=== PATIENT | female | born 1985 ===

== ENCOUNTER 2018-08-25 09:57 | Inpatient (IN) | payer MEDICAID, OTHER ==
[2018-08-25 11:12] LABS: HCG,QUALITATIVE URINE NEGATIVE (NEGATIVE)
[2018-08-25 11:13] LABS: SQUAMOUS EPITHIAL < 1 /hpf (0-5); URINE BACTERIA MANY (<OCC); URINE BILIRUBIN NEGATIVE (NEGATIVE); URINE BLOOD 2+ (NEGATIVE); URINE COLOR Yellow (YELLOW); URINE GLUCOSE (UA) NORMAL (Normal); URINE LEUKOCYTE ESTERASE 1+ Leu/uL (Negative); URINE PROTEIN 1+ mg/dL (NEGATIVE); URINE UROBILINOGEN NORMAL mg/dL (0.2-1.0)
[2018-08-25 11:14] LABS: URINE CLARITY SLHAZY (Clear)
--- NOTE | 2018-08-25 11:31 | C.PDOC ---
History Of Present Illness 33 y/o female pt with hx of kidney stone with lithotripsy and right renal stent on 07[place]13 in [place] presents to the ER complaining of abdominal pain. Associated sx includes subjective fever, dysuria and urinary pressure since then. Pt was seen by Dr. Wheatley on 08/16 and was started on Augmentin with no improvement. Pt reports stent is supposed to come out in 2 months. Pt has no other associated sx or complaints at this time. Time Seen by Provider: 08/25/18 10:51 Chief Complaint (Nursing): Female Genitourinary History Per: Patient History/Exam Limitations: no limitations Onset/Duration Of Symptoms: Days Current Symptoms Are (Timing): Still Present Past Medical History Reviewed: Historical Data, Nursing Documentation, Vital Signs Vital Signs: Last Vital Signs Temp 98.8 F 08/25/18 10:30 Pulse 72 08/25/18 10:30 Resp 18 08/25/18 10:30 BP 106/67 08/25/18 10:30 Pulse Ox 98 08/25/18 10:30 - Medical History PMH: Kidney Stones, Chronic Kidney Disease Family History: States: No Known Family Hx - Social History Hx Alcohol Use: No Hx Substance Use: No - Immunization History Hx Tetanus Toxoid Vaccination: No Hx Influenza Vaccination: No Review Of Systems Constitutional: Positive for: Fever (subjective) Gastrointestinal: Positive for: Abdominal Pain Genitourinary: Positive for: Dysuria, Other (urinary pressure ) Physical Exam - Physical Exam Appears: Non-toxic, No Acute Distress Skin: No Rash Head: Atraumatic, Normacephalic Eye(s): bilateral: PERRL, EOMI Neck: Supple Chest: No Tenderness Cardiovascular: Rhythm Regular, No Murmur Respiratory: No Rales, No Rhonchi, No Wheezing, Other (CTA b/l ) Gastrointestinal/Abdominal: Soft, Tenderness (left sided and suprapubic ), No Distention, No Guarding, No Rebound Back: No CVA Tenderness Neurological/Psych: Oriented x3, Normal Speech, Normal Cognition ED Course And Treatment - Laboratory Results Result Diagrams: 09/02/18 06:56 09/02/18 06:56 Lab Results: Urine Color Yellow (YELLOW) 08/25/18 10:58 Urine Clarity [place]hazy (Clear) 08/25/18 10:58 Urine pH 6.0 (5.0-8.0) 08/25/18 10:58 Ur Specific [place] 1.017 (1.003-1.030) 08/25/18 10:58 Urine Protein 1+ mg/dL (NEGATIVE) H 08/25/18 10:58 Urine Glucose (UA) Normal mg/dL (Normal) 08/25/18 10:58 Urine Ketones Negative mg/dL (NEGATIVE) 08/25/18 10:58 Urine Blood 2+ (NEGATIVE) H 08/25/18 10:58 Urine Nitrate Negative (NEGATIVE) 08/25/18 10:58 Urine Bilirubin Negative (NEGATIVE) 08/25/18 10:58 Urine Urobilinogen Normal mg/dL (0.2-1.0) 08/25/18 10:58 Ur Leukocyte Esterase 1+ Tash/uL (Negative) H 08/25/18 10:58 Urine WBC (Auto) 14 /hpf (0-5) H 08/25/18 10:58 Urine RBC (Auto) 56 /hpf (0-3) H 08/25/18 10:58 Ur Squamous Epith Cells < 1 /hpf (0-5) 08/25/18 10:58 Urine Bacteria Many (<OCC) H 08/25/18 10:58 Urine HCG, Qual Negative (NEGATIVE) 08/25/18 10:58 Urine HCG, Qual Negative (NEGATIVE) 08/25/18 10:58 O2 Sat by Pulse Oximetry: 98 (RA) Pulse Ox Interpretation: Normal Medical Decision Making Medical Decision Making: plans: -- chem labs -- blood work -- abdomen XR Discuss case with Dr. Wheatley, awaits sensitivity results from recent urine culture pt with esbl positive urine, sensitive to few antiboitcs. discussed with Dr Alison burciaga and also with Dr Agosto who accepts pt for admission Disposition Discussed With Dr.: Hossein Banks Doctor Will See Patient In The: Hospital - Disposition Disposition: HOSPITALIZED Disposition Time: 16:50 Condition: GOOD - Clinical Impression Clinical Impression: Retained ureteral stent, Infection due to ESBL-producing Escherichia coli - PA / CONTINUITY PERSON / Resident Statement / has reviewed & agrees with the documentation as recorded. - Scribe Statement The provider has reviewed the documentation as recorded by the Alberto Brumfield Do All medical record entries made by the Scribe were at my direction and personally dictated by me. I have reviewed the chart and agree that the record accurately reflects my personal performance of the history, physical exam, medical decision making, and the department course for this patient. I have also personally directed, reviewed, and agree with the discharge instructions and disposition.
[2018-08-25 11:42] LABS: BASO # 0.1 K/uL (0.0-0.2); BASO % 0.9 % (0.0-2.0); EOS # 0.1 K/uL (0.0-0.7); EOS % 1.4 % (0.0-4.0); HEMOGLOBIN 12.3 g/dL (11.0-16.0); LYMPH # 2.5 K/uL (1.0-4.3); LYMPH % 26.5 % (20.0-40.0); MEAN CELL VOLUME 79.3 fL (81.0-99.0); MEAN CORPUSCULAR HEMOGLOBIN 26.6 pg (27.0-31.0); MEAN CORPUSCULAR HGB CONC 33.5 g/dL (33.0-37.0); MEAN PLATELET VOLUME 9.3 fL (7.2-11.7); MONO # 0.7 K/uL (0.0-0.8); MONO % 7.2 % (0.0-10.0); RBC 4.61 Mil/uL (3.80-5.20); RED CELL DISTRIBUTION WIDTH 15.3 % (11.5-14.5); WHITE BLOOD COUNT 9.4 K/uL (4.8-10.8)
[2018-08-25 11:55] LABS: ALB/GLOB RATIO 1.3 (1.0-2.1); ALBUMIN 4.2 g/dL (3.5-5.0); AST/SGOT 24 U/L (14-36); BLOOD UREA NITROGEN 13 mg/dL (7-17); CALCIUM 8.9 mg/dl (8.6-10.4); GFR NON-AFRICAN AMERICAN > 60; LIPASE 91 U/L (23-300)
[2018-08-25 12:06] LABS: ALT/SGPT < 6 U/L (9-52)
--- NOTE | 2018-08-25 12:45 | RAD ---
Date of service: 08/25/2018 HISTORY: hx right renal stent, eval for stones bilateral COMPARISON: None available. TECHNIQUE: 1 view obtained. FINDINGS: A right double-J ureteral stent remains in customary position. There is a 3 mm the radio opacity medial to the stent in the right hemipelvis. There are no calcifications overlying the right renal silhouette. There is a faint 8 mm calcification overlying the left renal silhouette. BOWEL: Normal. No obstruction. No free air. BONES: Normal. OTHER FINDINGS: None. IMPRESSION: Right double-J ureteral stent remains in customary position. 3 mm radiopacity medial to the stent in the right hemipelvis may represent a ureteral stone in the appropriate clinical setting. No radiographic evidence for right nephrolithiasis 8 mm faint linear calcification overlying the left renal silhouette represent in renal stone. Please correlate with renal ultrasound.
[2018-08-25] MEDS ORDERED: Meropenem 500 MG in Sodium Chloride 0.9% 100 ML IVPB STA (14:22)
--- NOTE | 2018-08-25 14:30 | CP.PCM.HP ---
<VipulJohnny gonzalezic - Last Filed: 08/25/18 16:52> History of Present Illness - History of Present Illness History of Present Illness: H&P for Dr. Banks Patient is a 33 year old female, with PMHx of nephrolithiasis (with placement of renal stent, lithotripsy in 07/03), who presents for flank pain. States she has "5+ year history of kidney stones" but this bout of nephrolithiasis began two months ago. She describes pain as "burning sensation," and is located on her left flank - which radiates into her groin. Pain rates as "5-7/10" on the severity scale. Patient admits flank pain associated with subjective fever, dysuria, hematuria and urinary frequency. Pt was seen by Dr. Wheatley on 08/16 and was started on Augmentin without improvement. Pt reports renal stent is supposed to "come out in October" per her urologist in the [place]. She denies knowing the type of stone. PMHx: nephrolithiasis (first diagnosed 5 yrs ago; renal stent lithotripsy 07/03), pre-eclampsia PSHx: (x2) Allergies: NKA Fam Hx: non-contributory Medications: Augmentin (started 08/16) Present on Admission - Present on Admission Any Indicators Present on Admission: No History of DVT/PE: No History of Uncontrolled Diabetes: No Review of Systems - Constitutional Constitutional: Chills, Fever (subjective). absent: Anorexia - EENT Eyes: absent: Change in Vision Ears: absent: Ear Discharge Nose/Mouth/Throat: absent: Nasal Discharge, Sore Throat - Cardiovascular Cardiovascular: absent: Chest Pain, Dyspnea, Dyspnea on Exertion - Respiratory Respiratory: absent: Cough, Dyspnea - Gastrointestinal Gastrointestinal: Abdominal Pain - Genitourinary Genitourinary: Difficulty Urinating, Dysuria, Flank Pain, Hematuria, Urinary Urgency, Hx Renal/Bladder Calculi - Musculoskeletal Musculoskeletal: Back Pain. absent: Numbness, Tingling - Integumentary Integumentary: absent: Dry Skin, Wounds - Neurological Neurological: absent: Tingling, Weakness - Psychiatric Psychiatric: absent: Anxiety, Depression - Endocrine Endocrine: absent: Fatigue, Polyuria (`) Past Patient History - Past Social History Smoking Status: Never Smoked - RENAL Hx Chronic Kidney Disease: Yes Hx Kidney Stones: Yes - PSYCHIATRIC Hx Substance Use: No - SURGICAL HISTORY Hx Surgeries: Yes Hx Section: Yes (x2) Other/Comment: urinary stent - ANESTHESIA Hx Anesthesia: No Meds Allergies/Adverse Reactions: Allergies Allergy/AdvReac Type Severity Reaction Status Date / Time No Known Allergies Allergy Verified 08/25/18 10:24 Physical Exam - Constitutional Appears: Non-toxic, No Acute Distress - Head Exam Head Exam: ATRAUMATIC, NORMAL INSPECTION - Eye Exam Eye Exam: EOMI Pupil Exam: PERRL - ENT Exam ENT Exam: Mucous Membranes Moist - Respiratory Exam Respiratory Exam: Clear to Auscultation Bilateral, NORMAL BREATHING PATTERN. absent: Decreased Breath Sounds, Rhonchi, Wheezes - Cardiovascular Exam Cardiovascular Exam: REGULAR RHYTHM, +S1, +S2 - GI/Abdominal Exam GI & Abdominal Exam: Normal Bowel Sounds, Soft, Tenderness (left sided worse). absent: Distended, Guarding, Rebound - Back Exam Back exam: CVA tenderness (L) (mild). absent: CVA tenderness (R) - Neurological Exam Neurological exam: Alert, Normal Gait, Oriented x3 - Psychiatric Exam Psychiatric exam: Normal Affect, Normal Mood - Skin Skin Exam: Normal Color, Warm Results - Vital Signs Recent Vital Signs: Last Vital Signs Temp 98.8 F 08/25/18 10:30 Pulse 72 08/25/18 10:30 Resp 18 08/25/18 10:30 BP 106/67 08/25/18 10:30 Pulse Ox 98 08/25/18 12:13 - Labs Result Diagrams: 08/25/18 11:34 08/25/18 11:34 Labs: Laboratory Results - last 24 hr 08/25/18 08/25/18 08/25/18 10:58 11:34 11:34 WBC 9.4 RBC 4.61 Hgb 12.3 Hct 36.6 MCV 79.3 L MCH 26.6 L MCHC 33.5 RDW 15.3 H Plt Count 264 MPV 9.3 Neut % (Auto) 64.0 Lymph % (Auto) 26.5 Gaston % (Auto) 7.2 Eos % (Auto) 1.4 Baso % (Auto) 0.9 Neut # (Auto) 6.0 Lymph # (Auto) 2.5 Gaston # (Auto) 0.7 Eos # (Auto) 0.1 Baso # (Auto) 0.1 Sodium 136 Potassium 3.8 Chloride 102 Carbon Dioxide 27 Anion Gap 11 BUN 13 Creatinine 0.8 Est GFR ( Amer) > 60 Est GFR (Non-Af Amer) > 60 Random Glucose 87 Calcium 8.9 Total Bilirubin 0.4 AST 24 ALT < 6 L Alkaline Phosphatase 55 Total Protein 7.3 Albumin 4.2 Globulin 3.1 Albumin/Globulin Ratio 1.3 Lipase 91 Urine Color Yellow Urine Clarity [place]azy Urine pH 6.0 Ur Specific [place] 1.017 Urine Protein 1+ H Urine Glucose (UA) Normal Urine Ketones Negative Urine Blood 2+ H Urine Nitrate Negative Urine Bilirubin Negative Urine Urobilinogen Normal Ur Leukocyte Esterase 1+ H Urine WBC (Auto) 14 H Urine RBC (Auto) 56 H Ur Squamous Epith Cells < 1 Urine Bacteria Many H Urine HCG, Qual Negative Assessment & Plan - Assessment and Plan (Free Text) Plan: Nephrolithiasis w. Positive Urine Culture Admit to med/surg Afebrile, No WBC History of lithotripsy/stenet placement in [facility] [place] (06/2018) Seen Dr. Wheatley - Home Augmentin - office urine cx: ESBL+ (Sensitivites to gentamycin, merrem, macrobid) CT A/P (08/25/18): Small rt kidney; 2mm nonobstructing stone in lower pole of right kidney w/o obstructive uropathy. Right ureteral stent in customary position. No evidence of ureteral stone. Mild compensatory hypertrophy of left kidney. Small non-obstructing stones in the left kidney - largest in lower pole measuring 5mm. Abd xray (08/25/18): 3mm radio-opacity medial to the stent in right hemipelvis, 8mm liver calcification overlying left renal silhouette UA (08/25/18): LE 1+, WBC 14, 2+ Blood, Many bacteria, Sq epithelial 1, BHCG negative Lipase 91 Urology consult - Dr Rosas, help appreciated - OR cystoscopy (08/28/18 - Tuesday) Merrem 1gm IV Q8H (start 08/25/18; Day 1) -Merrem 500mg IV, Macrobid 100mg PO STAT in ED Toradol 30mg IV Q6H JESUS, Tylenol 650mg JESUS x 24 hrs Lactobacillus 1 cap PO BID f/u blood cx, urine cx PPX VTE: 2pts (BMI >30, Minor surgery planned) Heparin 5000u Q12H Protonix 40mg PO Daily SCDs Heart Healthy diet Winston Aguilar PGY3 D/w Dr Banks <Hossein Banks - Last Filed: 08/26/18 16:07> Results - Vital Signs Recent Vital Signs: Last Vital Signs Temp 97.9 F 08/26/18 15:00 Pulse 66 08/26/18 15:00 Resp 20 08/26/18 15:00 BP 104/69 08/26/18 15:00 Pulse Ox 97 08/26/18 15:00 - Labs Result Diagrams: 08/25/18 11:34 08/25/18 11:34 Attending/Attestation - Attestation I have personally seen and examined this patient.: Yes I have fully participated in the care of the patient.: Yes I have reviewed all pertinent clinical information: Yes Notes (Text): 08/26/18 16:06 This is a late entry. History, Physical, Assessment and Plan were gone over in detail with resident Dr. Martin Aguilar. Hossein Banks D.O.
--- NOTE | 2018-08-25 15:13 | CT ---
Date of service: 08/25/2018 PROCEDURE: CT Abdomen and Pelvis without intravenous contrast HISTORY: Right flank pain COMPARISON: Plain radiographs performed earlier the same day TECHNIQUE: CT scan of the abdomen and pelvis was performed without administration of intravenous contrast. Oral contrast was not administered. Coronal and sagittal reformatted images were obtained. Radiation dose: Total exam DLP = 819.45 mGy-cm. This CT exam was performed using one or more of the following dose reduction techniques: Automated exposure control, adjustment of the mA and/or kV according to patient size, and/or use of iterative reconstruction technique. FINDINGS: LOWER THORAX: The visualized lungs are clear. LIVER: Normal in size. No gross lesion or ductal dilatation. GALLBLADDER AND BILE DUCTS: Well distended. No calcified gallstones. No common bile duct dilatation. PANCREAS: Normal in size. No gross lesion or ductal dilatation. SPLEEN: Normal in size. ADRENALS: Normal in size. No discrete nodule. KIDNEYS AND URETERS: The right kidney is small in size with a cortical scar in the pole there is mild compensatory hypertrophy of the left kidney. There is mild fullness in the right collecting system. No left hydronephrosis. There is a 2 mm nonobstructing stone in the lower pole of the right kidney and few nonobstructing stones in the left kidney, the largest in the lower pole measures 5 mm. A right double-J ureteral stent remain in customary position. There is no evidence of ureteral stone or obstructive uropathy. VASCULATURE: Normal in caliber. No aortic aneurysm. No aortic atherosclerotic calcification or mural plaque present. BOWEL: Evaluation of the bowel is limited in the absence of oral contrast. The small bowel loops are normal in caliber. The colon is normal in size. There is moderate amount of stool in the colon. No bowel dilatation or wall thickening. No bowel obstruction. APPENDIX: Normal appendix. PERITONEUM: No free fluid. No free air. LYMPH NODES: No enlarged lymph nodes. BLADDER: Well distended and normal in appearance. REPRODUCTIVE: The uterus is normal in size. BONES: No acute fracture. Within normal limits for the patient's age. OTHER FINDINGS: There are small phleboliths in the pelvis. There is a small fat containing umbilical hernia. IMPRESSION: 1. Small right kidney with a cortical scar in the upper pole. 2 mm nonobstructing stone in the lower pole of the right kidney. Mild fullness in the right collecting system without obstructive uropathy. Right ureteral stent remains in customary position. No evidence of ureteral stone. 2. Mild compensatory hypertrophy of the left kidney. Small nonobstructing stones in the left kidney, the largest in the lower pole measures 5 mm. No left hydronephrosis.
[2018-08-25] MEDS: Lactobacillus Acidophilus 500 MU Cap PO SCH (18:23)
[2018-08-25] MEDS: Meropenem 1 GM in Sodium Chloride 0.9% 100 ML IVPB SCH (21:56)
[2018-08-25] MEDS ORDERED: Meropenem 500 MG in Sodium Chloride 0.9% 100 ML IVPB SCH (22:00)
[2018-08-26] MEDS: Meropenem 1 GM in Sodium Chloride 0.9% 100 ML IVPB SCH ×3 (05:42→21:37)
--- NOTE | 2018-08-26 09:45 | CP.PCM.PN ---
Subjective - Date & Time of Evaluation Date of Evaluation: 12/26/18 Time of Evaluation: 09:30 - Subjective Subjective: Hospitalist Progress Note Patient was seen and examined at 9:30 AM 08/26/18 Isolation Room 566 33 year old female (PMHx: Nephrolithiasis with Right Ureteral Stent in the [place] in June 2018) who was admitted on 08/25/18 for evaluation of bilateral flank pain and was found to have bilateral nephrolithiasis and ESBL in Urine (urine culture done as an outpatient at Dr. Wheatley's office). Abdominal X Ray 08/25/18 showed 3 mm radiopacity medial to stent in the Right Hemipelvis and 8 mm faint linear calcification overlying with the left renal silhoutte. CT Abdomen/Pelvis without contrast 08/25/18: small right kidney with cortical scar n the upper pole, 2 mm nonobstructing stone in the lower pole of the right kidney, mild fullness in the right collecting system without obstructive uropathy, right ureteral stent remains in customary position, no evidence of ureteral stone on the right, mild compensatory hyp ertrophy of the left kidney, small nonobstructing stones in the left kidney with the largest in the lower pole measures 5mm, NO left hydronephrosis. Urology Dr. Peraza was consulted and as per conversation with the ER, patient is planned for Cystoscopy/Ureterscopy on Tuesday08/28/18. Blood Cultures and Urine Cultures were sent 08/25/18. Patient was started on [id number] and placed on contact isolation. Currently upon FULL ROS: NO chest pain NO palpitations NO SOB/Cough/Wheezing NO dysphagia/odynophagia NO abdominal pain Bilateral flank pain with worse on the right than on the left (+) Burning with urination during the night NO n/v/d: last normal bowel movement was on 08/24/18 NO lightheadedness/dizziness NO new changes in vision NO new changes in hearing NO paresthesias NO edema General: AAOX3, NAD HEENT: NCA, EOMI, PERRLA, NO cervical/supraclavicular/submandibular lymphadenopathy, NO pharyngeal erythema/exudate, NO thyromegaly Cardio: NS1 and NS2, NO M/R/G Resp: CTA Bilaterally, NO R/R/W GI: BSx4, ND, Tender to palpation in the RLQ without rebound/guarding, NO HSM, Bilateral CVA tenderness with right greater than the left Ext: Pulses are strong and equal, Capillary Refill is 2 seconds, NO edema Neuro: CN II through XII are grossly intact Assessment and Plan: 1). Bilateral Nephrolithiasis Right Ureteral Stent ESBL UTI Status: Acute * F/U repeat blood and urine cultures * Continue the Meropenem and adjust based upon results of cultures * Toradol and Tylenol for pain every 6 hours with STOP time at 6 PM tonight. After this time will convert these medications to PRN * Resident Dr. Aguilar has left messages for Dr. Reeves's at his office with his contact information so that Medicine Team can confirm treatment plan as discussed with the ER. Dr. Aguilar will reach out to me once hears from Dr. Reeves. 2). Prophylaxis * Heparin 5,000 Units SC Q8H * Lactobacillus 1 capsule PO BID * Zofran 4 mg IV Q6H PRN N/V Plan of care discussed with patient at length with Nurse Maria De Jesus on evening 08/25/18 Hossein Banks D.O. Objective - Vital Signs/Intake and Output Vital Signs (last 24 hours): Temp Pulse Resp BP Pulse Ox 98.0 F 72 20 100/65 99 08/26/18 07:00 08/26/18 07:00 08/26/18 07:00 08/26/18 07:00 08/26/18 07:00 - Medications Medications: Current Medications Acetaminophen (Tylenol 325mg Tab) 650 mg PO Q6 [facility] Stop: 08/26/18 18:00 Last Admin: 08/26/18 05:44 Dose: 650 mg Heparin Sodium (Porcine) (Heparin) 5,000 units SC Q12 [facility] Last Admin: 08/25/18 21:56 Dose: 5,000 units Meropenem 1 gm/ Sodium (Chloride) 100 mls @ 100 mls/hr IVPB Q8H [facility]1983; Protocol Last Admin: 08/26/18 05:42 Dose: 100 mls/hr Ketorolac Tromethamine (Toradol) 30 mg IV Q6 [facility] Stop: 08/26/18 18:00 Last Admin: 08/26/18 05:43 Dose: 30 mg Lactobacillus Acidophilus (Lactobacillus) 1 cap PO BID [facility] Last Admin: 08/25/18 18:23 Dose: 1 cap Ondansetron HCl (Zofran Inj) 4 mg IVP Q6 PRN PRN Reason: Nausea/Vomiting Pantoprazole Sodium (Protonix Ec Tab) 40 mg PO DAILY JESUS Pneumococcal Polyvalent Vaccine (Pneumovax 23 Vaccine) 0.5 ml IM .ONCE ONE Stop: 08/26/18 10:01 - Labs Labs: 08/25/18 11:34 08/25/18 11:34
[2018-08-26] MEDS: Pantoprazole 40 mg EC Tab PO SCH (09:53)
[2018-08-26] MEDS: Lactobacillus Acidophilus 500 MU Cap PO SCH ×2 (09:53→18:12)
[2018-08-26] MEDS ORDERED: Pneumococcal 23-Valent Vaccine IM ONE (10:00)
[2018-08-27] MEDS: Meropenem 1 GM in Sodium Chloride 0.9% 100 ML IVPB SCH ×3 (05:58→21:31)
[2018-08-27 09:06] LABS: BASO # 0.1 K/uL (0.0-0.2); BASO % 0.8 % (0.0-2.0); EOS # 0.1 K/uL (0.0-0.7); EOS % 1.6 % (0.0-4.0); HEMOGLOBIN 12.8 g/dL (11.0-16.0); LYMPH # 1.9 K/uL (1.0-4.3); LYMPH % 23.5 % (20.0-40.0); MEAN CELL VOLUME 80.1 fL (81.0-99.0); MEAN CORPUSCULAR HEMOGLOBIN 26.9 pg (27.0-31.0); MEAN CORPUSCULAR HGB CONC 33.6 g/dL (33.0-37.0); MEAN PLATELET VOLUME 9.2 fL (7.2-11.7); MONO # 0.5 K/uL (0.0-0.8); MONO % 6.3 % (0.0-10.0); NEUT # 5.5 K/uL (1.8-7.0); NEUT % 67.8 % (50.0-75.0); RBC 4.74 Mil/uL (3.80-5.20); RED CELL DISTRIBUTION WIDTH 15.1 % (11.5-14.5); WHITE BLOOD COUNT 8.1 K/uL (4.8-10.8)
[2018-08-27 09:32] LABS: ALB/GLOB RATIO 1.3 (1.0-2.1); ALBUMIN 3.9 g/dL (3.5-5.0); ALT/SGPT 7 U/L (9-52); AST/SGOT 25 U/L (14-36); BLOOD UREA NITROGEN 14 mg/dL (7-17); CALCIUM 8.7 mg/dl (8.6-10.4); GFR NON-AFRICAN AMERICAN > 60
[2018-08-27] MEDS: Lactobacillus Acidophilus 500 MU Cap PO SCH ×2 (10:03→17:56)
[2018-08-27] MEDS: Pantoprazole 40 mg EC Tab PO SCH (10:03)
--- NOTE | 2018-08-27 10:38 | CP.PCM.PN ---
Subjective - Date & Time of Evaluation Date of Evaluation: 08/27/18 Time of Evaluation: 10:10 - Subjective Subjective: Hospitalist Progress Note Patient was seen and examined at 10:10 AM 08/27/18 Isolation Room 566 33 year old female (PMHx: Nephrolithiasis with Right Ureteral Stent in the [place] in June 2018) who was admitted on 08/25/18 for evaluation of bilateral flank pain and was found to have bilateral nephrolithiasis and ESBL in Urine (urine culture done as an outpatient at Dr. Wheatley's office). Abdominal X Ray 08/25/18 showed 3 mm radiopacity medial to stent in the Right Hemipelvis and 8 mm faint linear calcification overlying with the left renal silhoutte. CT Abdomen/Pelvis without contrast 08/25/18: small right kidney with cortical scar n the upper pole, 2 mm nonobstructing stone in the lower pole of the right kidney, mild fullness in the right collecting system without obstructive uropathy, right ureteral stent remains in customary position, no evidence of ureteral stone on the right, mild compensatory hy pertrophy of the left kidney, small nonobstructing stones in the left kidney with the largest in the lower pole measures 5mm, NO left hydronephrosis. Spoke with Urologist Dr. Rosas via phone 10:33 AM 08/27/18: does not recommend any procedure at this time (either lithotripsy or Ureterscopy/Cytoscopy) considering the current infection with ESBL, which needs to be treated first before any procedural treatment. Blood Cultures 08/25/18 is negative to date. Urine Cultures 08/25/18 is (+) ESBL. Patient is on Meropenem and is on contact isolation. Currently upon FULL ROS: NO chest pain NO palpitations NO SOB/Cough/Wheezing NO dysphagia/odynophagia NO abdominal pain Bilateral flank pain with worse on the right than on the left (+) Burning with urination still present off and on NO change in color of urine: NOT pink or bloody NO n/v/d/c NO lightheadedness/dizziness NO new changes in vision NO new changes in hearing NO paresthesias NO edema General: AAOX3, NAD HEENT: NCA, EOMI, PERRLA, NO cervical/supraclavicular/submandibular lymphadenopathy, NO pharyngeal erythema/exudate, NO thyromegaly Cardio: NS1 and NS2, NO M/R/G Resp: CTA Bilaterally, NO R/R/W GI: BSx4, ND, Tender to palpation in the RLQ without rebound/guarding, NO HSM, Bilateral CVA tenderness with right greater than the left Ext: Pulses are strong and equal, Capillary Refill is 2 seconds, NO edema Neuro: CN II through XII are grossly intact Assessment and Plan: 1). Bilateral Nephrolithiasis Right Ureteral Stent ESBL UTI Status: Acute * Blood Cultures 08/25/18 is negative to date. * Urine Cultures 08/25/18 is (+) ESBL. * Repeat Urine Culture ordered for morning 08/28/18 * Continue the Meropenem 1 gm IV Q8H * Toradol and Tylenol for pain every 6 hours was given for 24 hours and then made PRN. * Spoke with Urologist Dr. Rosas via phone 10:33 AM 08/27/18: does not recommend any procedure at this time (either lithotripsy or Ureterscopy/Cytoscopy) considering the current infection with ESBL, which needs to be treated first before any procedural treatment * F/U ID Dr. Lopez recommendations for IV to PO antibiotic switch once repeat Urine Culture 08/28/18 comes back as negative considering options are limited as only PO antibiotic that shows sensitivity to the ESBL is Bactrim, however PETRA is high at 8 2). Prophylaxis * Heparin 5,000 Units SC Q8H * Lactobacillus 1 capsule PO BID * Zofran 4 mg IV Q6H PRN N/V\ Plan of care explained to patient by Resident Dr. Bernadette Holcomb in [place] Patient was also informed with the help of [employer] Interpretor ID #: [id number] Disposition: Make sure the ESBL in the Urine is effectively treated Make sure Blood Culture is negative at for 72 hours and patient is fever free for at least 48 hours F/U with ID Dr. Lopez for IV antibiotic to PO switch Once UTI clears then discharge and have patient follow up with [facility] for Urology referral Hossein Banks D.O. Objective - Vital Signs/Intake and Output Vital Signs (last 24 hours): Temp Pulse Resp BP Pulse Ox 98.2 F 71 20 104/71 100 08/27/18 07:00 08/27/18 07:00 08/27/18 07:00 08/27/18 07:00 08/27/18 07:00 - Medications Medications: Current Medications Acetaminophen (Tylenol 325mg Tab) 650 mg PO Q6 PRN PRN Reason: Pain, moderate (4-7) Heparin Sodium (Porcine) (Heparin) 5,000 units SC Q12 [facility] Last Admin: 08/27/18 10:03 Dose: 5,000 units Meropenem 1 gm/ Sodium (Chloride) 100 mls @ 100 mls/hr IVPB Q8H [facility]; Protocol Last Admin: 08/27/18 05:58 Dose: 100 mls/hr Ketorolac Tromethamine (Toradol) 30 mg IVP Q6 PRN PRN Reason: Pain, severe (8-10) Lactobacillus Acidophilus (Lactobacillus) 1 cap PO BID [facility] Last Admin: 08/27/18 10:03 Dose: 1 cap Ondansetron HCl (Zofran Inj) 4 mg IVP Q6 PRN PRN Reason: Nausea/Vomiting Pantoprazole Sodium (Protonix Ec Tab) 40 mg PO DAILY [facility] Last Admin: 08/27/18 10:03 Dose: 40 mg - Labs Labs: 08/27/18 08:55 08/27/18 08:55
--- NOTE | 2018-08-27 14:47 | CP.PCM.PCO ---
Physician Communication Note - Physician Communication Note Physician Communication Note: Please see above
--- NOTE | 2018-08-27 16:09 | CP.PCM.CON ---
History of Present Illness - History of Present Illness History of Present Illness: 33 year old female with PMHx of nephrolithiasis with placement of renal stent in 07/03 is admitted for complicated UTI with ESBL + E Coli PMHx: nephrolithiasis (first diagnosed 5 yrs ago; renal stent lithotripsy 07/03), pre-eclampsia PSHx: (x2) Allergies: NKA Fam Hx: non-contributory Medications: Augmentin (started 08/16) Review of Systems - Review of Systems All systems: reviewed and no additional remarkable complaints except - Constitutional Constitutional: As Per HPI - EENT Eyes: absent: As Per HPI, Blind Spots, Blurred Vision, Change in Vision, Decreased Night Vision, Diplopia, Discharge, Dry Eye, Exophthalmos, Floaters, Irritation, Itchy Eyes, Loss of Peripheral Vision, Pain, Photophobia, Requires Corrective Lenses, Sees Flashes, Spots in Vision, Tunnel Vision, Other Visual Disturbances, Loss of Vision, Other Ears: absent: As Per HPI, Decreased Hearing, Ear Discharge, Ear Pain, Tinnitus, Abnormal Hearing, Disequilibrium, Dizziness, Other Nose/Mouth/Throat: absent: As Per HPI, Epistaxis, Nasal Congestion, Nasal Discharge, Nasal Obstruction, Nasal Trauma, Nose Pain, Post Nasal Drip, Sinus Pain, Sinus Pressure, Bleeding Gums, Change in Voice, Dental Pain, Dry Mouth, Dysphagia, Halitosis, Hoarsness, Lip Swelling, Mouth Lesions, Mouth Pain, Odynophagia, Sore Throat, Throat Swelling, Tongue Swelling, Facial Pain, Neck Pain, Neck Mass, Other - Breasts Breasts: absent: As Per HPI, Change in Shape, Mass, Pain, Nipple Discharge, Nipple Inversion, Skin Changes, Swelling, Other - Cardiovascular Cardiovascular: absent: As Per HPI, Acrocyanosis, Chest Pain, Chest Pain at Rest, Chest Pain with Activity, Claudication, Diaphoresis, Dyspnea, Dyspnea on Exertion, Edema, Irregular Heart Rhythm, Pain Radiating to Arm/Neck/Jaw, Leg Edema, Leg Ulcers, Lightheadedness, Orthopnea, Palpitations, Paroxysmal Nocturnal Dyspnea, Pedal Edema, Radiating Pain, Rapid Heart Rate, Slow Heart Rate, Syncope, Other - Respiratory Respiratory: absent: As Per HPI, Cough, Dyspnea, Hemoptysis, Dyspnea on Exert ion, Wheezing, Snoring, Stridor, Pain on Inspiration, Chest Congestion, Excessive Mucous Production, Change in Mucous Color, Pain with Coughing, Other - Gastrointestinal Gastrointestinal: absent: Abdominal Pain, Belching, Bloating, Change in Bowel Habits, Change in Stool Character, Coffee Ground Emesis, Constipation, Cramping, Diarrhea, Dyspepsia, Dysphagia, Early Satiety, Excessive Flatus, Fecal Incontinence, Heartburn, Hematemesis, Hematochezia, Loose Stools, Melena, Nausea, Odynophagia, Temesmus, Vomiting, Other - Genitourinary Genitourinary: As Per HPI - Reproductive: Female Reproductive:Female: absent: As Per HPI, Amenorrhea, Amenorrhea/ Control, Currently Menstual, Cycle <21 Days, Cycle >35 Days, Cycle Variable, Menses 1-7 Days, Menses >/= 8 Days, Menses Variable, Cycle > 4 Weeks Between, No Menses for 6 Months, Heavy Menses, Light Menses, Normal Menses, Spotting Between Cycles, S/P Hysterectomy, Menopausal, Post Menopausal, Premenarche, Abnormal Vaginal Ble eding, Dysmenorrhea, Dyspareunia, Genital Lesions, Genital Pruritis, Pelvic Pain, Prolapse Symptoms, Sexual Dysfunction, Vaginal Discharge, Vaginal Dryness, Vaginal Odor, Vaginal Pruritis, Other - Menstruation Menstruation: absent: As Per HPI, Amenorrhea, Amenorrhea/ Control, Currently Menstual, Cycle <21 Days, Cycle >35 Days, Cycle Variable, Menses 1-7 Days, Menses >/= 8 Days, Menses Variable, Cycle > 4 Weeks Between, No Menses for 6 Months, Heavy Menses, Light Menses, Normal Menses, Spotting Between Cycles, S/P Hysterectomy, Menopausal, Post Menopausal, Premenarche, Abnormal Vaginal Bleeding, Dysmenorrhea, Other - Musculoskeletal Musculoskeletal: absent: As Per HPI, Abnormal Gait, Arthralgias, Atrophy, Back Pain, Deformity, Joint Swelling, Limited Range of Motion, Loss of Height, Muscle Cramps, Muscle Weakness, Myalgias, Neck Pain, Numbness, Radiating Pain into Limb, Stiffness, Tingling, Other - Integumentary Integumentary: absent: As Per HPI, Acne, Alopecia, Bleeding Lesions, Change in Hair, Change in Nails, Change in Pigmentation, Changing Lesions, Dry Skin, Erythema, Furuncle, Hirsutism, Lesions, New Lesions, Non-Healing Lesions, Photosensitivity, Pruritus, Rash, Skin Pain, Skin Ulcer, Sores, Striae, Swelling, Unusual Bruising, Wounds, Jaundice, Other - Neurological Neurological: absent: As Per HPI, Abnormal Gait, Abnormal Hearing, Abnormal Movements, Abnormal Speech, Behavioral Changes, Burning Sensations, Confusion, Convulsions, Disequilibrium, Dizziness, Numbness, Focal Weakness, Frequent Falls, Headaches, Lack of Coordination, Loss of Vision, Memory Loss, Paresthesias, Radicular Pain, Restless Legs, Sensory Deficit, Syncope, Tingling, Tremor, Vertigo, Weakness, Other Visual Disturbances, Other - Psychiatric Psychiatric: absent: As Per HPI, Abnormal Sleep Pattern, Anhedonia, Anxiety, Auditory Hallucinations, Behavioral Changes, Change in Appetite, Change in Li evan, Confusion, Depression, Difficulty Concentrating, Hallucinations, Homicidal Ideation, Hopelessness, Irritability, Memory Loss, Mood Swings, Panic Attacks, Paranoia, Suicidal Ideation, Visual Hallucinations, Tactile Hallucinations, Other - Endocrine Endocrine: absent: As Per HPI, Change in Body Appearance, Change in Libido, Cold Intolorance, Deepening of Voice, Excessive Sweating, Fatigue, Flushing, Heat Intolorance, Increase in Ring/Shoe/Hat Size, Palpitations, Polydipsia, Polyphagia, Polyuria, Other - Hematologic/Lymphatic Hematologic: absent: As Per HPI, Easy Bleeding, Easy Bruising, Lymphadenopathy, Other Past Patient History - Past Social History Smoking Status: Never Smoked - RENAL Hx Chronic Kidney Disease: Yes Hx Kidney Stones: Yes - PSYCHIATRIC Hx Substance Use: No - SURGICAL HISTORY Hx Surgeries: Yes Hx Section: Yes (x2) Other/Comment: urinary stent - ANESTHESIA Hx Anesthesia: No Meds Allergies/Adverse Reactions: Allergies Allergy/AdvReac Type Severity Reaction Status Date / Time No Known Allergies Allergy Verified 08/25/18 10:24 - Medications Medications: Current Medications Acetaminophen (Tylenol 325mg Tab) 650 mg PO Q6 PRN PRN Reason: Pain, moderate (4-7) Heparin Sodium (Porcine) (Heparin) 5,000 units SC Q12 [facility] Last Admin: 08/27/18 10:03 Dose: 5,000 units Meropenem 1 gm/ Sodium (Chloride) 100 mls @ 100 mls/hr IVPB Q8H [facility]; Protocol Last Admin: 08/27/18 13:13 Dose: 100 mls/hr Ketorolac Tromethamine (Toradol) 30 mg IVP Q6 PRN PRN Reason: Pain, severe (8-10) Lactobacillus Acidophilus (Lactobacillus) 1 cap PO BID [facility] Last Admin: 08/27/18 10:03 Dose: 1 cap Ondansetron HCl (Zofran Inj) 4 mg IVP Q6 PRN PRN Reason: Nausea/Vomiting Pantoprazole Sodium (Protonix Ec Tab) 40 mg PO DAILY [facility] Last Admin: 08/27/18 10:03 Dose: 40 mg Physical Exam - Constitutional Appears: No Acute Distress, Chronically Ill - Head Exam Head Exam: ATRAUMATIC, NORMAL INSPECTION, NORMOCEPHALIC - Eye Exam Eye Exam: PERRL. absent: Scleral icterus Pupil Exam: NORMAL ACCOMODATION - ENT Exam ENT Exam: Mucous Membranes Dry, Normal External Ear Exam, Normal Oropharynx - Neck Exam Neck exam: Negative for: Lymphadenopathy, Thyromegaly - Respiratory Exam Respiratory Exam: Decreased Breath Sounds, Clear to Auscultation Bilateral - Cardiovascular Exam Cardiovascular Exam: Tachycardia, REGULAR RHYTHM, +S1, +S2 - GI/Abdominal Exam GI & Abdominal Exam: Diminished Bowel Sounds, Soft, Tenderness - Rectal Exam Rectal Exam: Deferred - Exam Exam: NORMAL INSPECTION - Extremities Exam Extremities exam: Positive for: pedal pulses present. Negative for: calf tenderness, pedal edema, tenderness - Back Exam Back exam: CVA tenderness (R). absent: CVA tenderness (L), paraspinal tenderness - Neurological Exam Neurological exam: Alert, CN II-XII Intact, Oriented x3, Reflexes Normal - Psychiatric Exam Psychiatric exam: Depressed - Skin Skin Exam: Dry Results - Vital Signs Recent Vital Signs: Last Vital Signs Temp 98.1 F 08/27/18 12:20 Pulse 67 08/27/18 12:20 Resp 20 08/27/18 12:20 BP 96/67 L 08/27/18 12:20 Pulse Ox 97 08/27/18 12:20 - Labs Result Diagrams: 08/27/18 08:55 08/27/18 08:55 Labs: Laboratory Results - last 24 hr 08/27/18 08/27/18 08:55 08:55 WBC 8.1 RBC 4.74 Hgb 12.8 Hct 38.0 MCV 80.1 L MCH 26.9 L MCHC 33.6 RDW 15.1 H Plt Count 273 MPV 9.2 Neut % (Auto) 67.8 Lymph % (Auto) 23.5 [place] % (Auto) 6.3 Eos % (Auto) 1.6 Baso % (Auto) 0.8 Neut # (Auto) 5.5 Lymph # (Auto) 1.9 [place] # (Auto) 0.5 Eos # (Auto) 0.1 Baso # (Auto) 0.1 Sodium 136 Potassium 4.0 Chloride 105 Carbon Dioxide 28 Anion Gap 8 L BUN 14 Creatinine 0.8 Est GFR ( Amer) > 60 Est GFR (Non-Af Amer) > 60 Random Glucose 87 Calcium 8.7 Total Bilirubin 0.3 AST 25 ALT 7 L Alkaline Phosphatase 54 Total Protein 6.9 Albumin 3.9 Globulin 3.0 Albumin/Globulin Ratio 1.3 Assessment & Plan (1) UTI (urinary tract infection) Status: Acute (2) Retained ureteral stent Status: Acute (3) Infection due to ESBL-producing Escherichia coli Status: Acute - Assessment and Plan (Free Text) Assessment: will need eval for possible stent remooval cont IV antibiotics for ESBL E Coli may need 14 days rx
[2018-08-28] MEDS: Meropenem 1 GM in Sodium Chloride 0.9% 100 ML IVPB SCH ×3 (06:08→22:04)
[2018-08-28 06:42] LABS: BASO # 0.1 K/uL (0.0-0.2); BASO % 0.8 % (0.0-2.0); EOS # 0.1 K/uL (0.0-0.7); HEMOGLOBIN 12.3 g/dL (11.0-16.0); LYMPH # 1.7 K/uL (1.0-4.3); LYMPH % 18.2 % (20.0-40.0); MEAN CELL VOLUME 79.8 fL (81.0-99.0); MEAN CORPUSCULAR HEMOGLOBIN 26.3 pg (27.0-31.0); MEAN CORPUSCULAR HGB CONC 32.9 g/dL (33.0-37.0); MEAN PLATELET VOLUME 9.3 fL (7.2-11.7); MONO # 0.5 K/uL (0.0-0.8); MONO % 5.3 % (0.0-10.0); NEUT % 74.7 % (50.0-75.0); RBC 4.7 Mil/uL (3.80-5.20); RED CELL DISTRIBUTION WIDTH 15.3 % (11.5-14.5); WHITE BLOOD COUNT 9.3 K/uL (4.8-10.8)
--- NOTE | 2018-08-28 07:35 | CP.PCM.PN ---
<Vito Mei - Last Filed: 08/28/18 15:43> Subjective - Date & Time of Evaluation Date of Evaluation: 08/28/18 Time of Evaluation: 09:00 - Subjective Subjective: PGY-[address] Garcia service Patient is seen and examined at bedside. Patient states feeling better, improved left flank pain, decreased pain during urination. Reports seeing clots in urine, most likely from menstruation as she started her period yesterday, denies burning at urination. Denies fever, chills, nausea, vomiting, diarrhea, constipation, abdominal pain. Objective - Vital Signs/Intake and Output Vital Signs (last 24 hours): Temp Pulse Resp BP Pulse Ox 97.9 F 76 20 102/66 95 08/27/18 23:20 08/27/18 23:20 08/27/18 23:20 08/27/18 23:20 08/27/18 23:20 - Medications Medications: Current Medications Acetaminophen (Tylenol 325mg Tab) 650 mg PO Q6 PRN PRN Reason: Pain, moderate (4-7) Last Admin: 08/28/18 03:37 Dose: 650 mg Heparin Sodium (Porcine) (Heparin) 5,000 units SC Q12 [facility] Last Admin: 08/27/18 21:32 Dose: 5,000 units Meropenem 1 gm/ Sodium (Chloride) 100 mls @ 100 mls/hr IVPB Q8H [facility]; Protocol Last Admin: 08/28/18 06:08 Dose: 100 mls/hr Ketorolac Tromethamine (Toradol) 30 mg IVP Q6 PRN PRN Reason: Pain, severe (8-10) Lactobacillus Acidophilus (Lactobacillus) 1 cap PO BID [facility] Last Admin: 08/27/18 17:56 Dose: 1 cap Ondansetron HCl (Zofran Inj) 4 mg IVP Q6 PRN PRN Reason: Nausea/Vomiting Pantoprazole Sodium (Protonix Ec Tab) 40 mg PO DAILY [facility] Last Admin: 08/27/18 10:03 Dose: 40 mg - Labs Labs: 08/28/18 06:29 08/27/18 08:55 - Constitutional Appears: Non-toxic, No Acute Distress - Head Exam Head Exam: ATRAUMATIC, NORMOCEPHALIC - Eye Exam Eye Exam: EOMI - ENT Exam ENT Exam: Mucous Membranes Moist - Respiratory Exam Respiratory Exam: Clear to Ausculation Bilateral, NORMAL BREATHING PATTERN. absent: Accessory Muscle Use, Rales, Rhonchi, Wheezes, Respiratory Distress - Cardiovascular Exam Cardiovascular Exam: REGULAR RHYTHM, +S1, +S2 - GI/Abdominal Exam GI & Abdominal Exam: Soft, Normal Bowel Sounds. absent: Distended, Tenderness - Back Exam Back Exam: CVA tenderness (L), CVA tenderness (R), paraspinal tenderness (low back), tenderness - Neurological Exam Neurological Exam: Alert, Awake, Oriented x3 - Psychiatric Exam Psychiatric exam: Normal Affect, Normal Mood - Skin Skin Exam: Dry, Intact, Normal Color, Warm Assessment and Plan - Assessment and Plan (Free Text) Assessment: 33 year old female with pmhx of nephrolithias s/p renal stent 06/2018, lithotripsy in the [place]), admitted for evaluation of flank pain extending to groin area, positive U/A, urine culture positive for ESBL, on IV abx Merrem, ID and urology on board Plan: 1). Bilateral Nephrolithiasis Right Ureteral Stent ESBL UTI Status: Acute * Blood Cultures 08/25/18 is negative to date. * Urine Cultures 08/25/18 is (+) ESBL. * Repeat Urine Cultures 08/27/18 - f/u results * Continue the Meropenem 1 gm IV Q8H * Tylenol Q6 PRN, Motrin Q6 PRN for pain * Urologist Dr Fontenot - Planning for stent removal today or tomorrow. will follow up recs - coags, hold a/c prior to procedure, Urine BHCG negative. * F/U ID Dr. Shell - f/u recs for eventual PO abx switch once urine is clear 2). Prophylaxis * SCDs * Lactobacillus 1 capsule PO BID * Zofran 4 mg IV Q6H PRN N/V Dispo: patient to go for stent removal with Urologist Dr Fontenot, will order Coags, will hold a/c prior to test. Urine B HCG negative. will follow up Urology recs after procedure. Plan discussed with Dr Radha Mei, PGY-1 <Ivana Garcia V - Last Filed: 08/29/18 14:50> Objective - Vital Signs/Intake and Output Vital Signs (last 24 hours): Temp Pulse Resp BP Pulse Ox 98.0 F 78 20 94/57 L 97 08/29/18 07:00 08/29/18 07:00 08/29/18 07:00 08/29/18 07:00 08/29/18 07:00 - Medications Medications: Current Medications Acetaminophen (Tylenol 325mg Tab) 650 mg PO Q6 PRN PRN Reason: Pain, moderate (4-7) Last Admin: 08/28/18 03:37 Dose: 650 mg Meropenem 1 gm/ Sodium (Chloride) 100 mls @ 100 mls/hr IVPB Q8H [facility]; Protocol Last Admin: 08/29/18 14:05 Dose: 100 mls/hr Lactobacillus Acidophilus (Lactobacillus) 1 cap PO BID [facility] Last Admin: 08/29/18 09:16 Dose: Not Given Ondansetron HCl (Zofran Inj) 4 mg IVP Q6 PRN PRN Reason: Nausea/Vomiting Pantoprazole Sodium (Protonix Ec Tab) 40 mg PO DAILY [facility] Last Admin: 08/29/18 09:16 Dose: Not Given - Labs Labs: 08/29/18 07:48 08/29/18 07:48 PT 12.8 SECONDS (9.7-12.2) H 08/28/18 16:23 INR 1.2 08/28/18 16:23 Attending/Attestation - Attestation I have personally seen and examined this patient.: Yes I have fully participated in the care of the patient.: Yes I have reviewed all pertinent clinical information, including history, physical exam and plan: Yes Notes (Text): This is late computer entry for 08/28/18. Patient seen, examined, and case discussed with day-time resident. patient seen this morning. Patient noted she had b/l kidney stones in [place] in [facility], received stent placement there. patient reports she has no intention in going back there. We have explained to her that the ureteral stent usually removed after some time regarding placement and we have also explained to her it can act as a source of infection. patient is without insurance at this time; reports she was told she needs to be living here for about 5 years; and we recommended her to get telly care. Patient was recently placed on Augmentin for abnormal urine culture; and since admission patient is on Mereopenm for ESBL+ uti, remains on contact. We have repeated urine studies to see if infection clears while on Iv abx. Note: patient has started her menstruation. patient was evaluated by urology later in the afternoon; recommended for KUB and possible procedure pending result. patient ordered for coagulation studies; heparin and toradol d/c for possible urology intervention. 1. History of Nephrolithasis ESBL+ Urinary Tract Infection History of Ureteral stent placement in 07/04 Assessment/Plan * Urology (Dr. Rosas) on board-->help appreciated * Infectious Disease (Dr. Shell) on board-->help appreciated * Urine culture (08/25/18): E. Coli * Blood cultures (08/25/18): negative * Meropenem 1gm IVPB Q8H (active since 08/25/18): * Bacid 1 tab PO BID * Zofran 4mg IVP Q6H PRN nausea * Abdominal xray (08/25/18): right double J ureteral stent remains in customary position. 3mm radiopacity medial to the stent in the right hemipelvis may represent a ureteral stone in the appropriate clinical setting. No radiographic evidence for right nephrolithiasis. 8mm faint linear calcificati on overlying the left renal silhouette represent in renal stone. * CT Abdomen/pelvis (08/25/18): small right kidney with cortical scar in the upper pole. 2mm nonobstructing stone in the lower pole of the right kidney. Mild fullness in the right collecting system without obtructive uropathy. Right ureteral stent remains in customary position. No evidence of ureteral strone. Mild compensatory hypertrophy of the left kidny. Small nonobstructing stones in the left kidney, the largest in the lower pole measures 5mm. No left hydronephrosis * Urology spoke with Resident Sigifredo; recommending for repeat KUB xray and possible cystoscopy. 2. Menstruation Assessment/Plan * patient is currently having menstruation--?reports typical 5-7 day course 3. Prophylactic measure * Protonix 40mg PO daily for GI ppx * Held heparin for possible urology intervention
[2018-08-28 07:50] LABS: ALB/GLOB RATIO 1.2 (1.0-2.1); ALBUMIN 3.8 g/dL (3.5-5.0); ALT/SGPT 8 U/L (9-52); AST/SGOT 22 U/L (14-36); BLOOD UREA NITROGEN 18 mg/dL (7-17); CALCIUM 8.8 mg/dl (8.6-10.4); GFR NON-AFRICAN AMERICAN > 60
[2018-08-28] MEDS: Pantoprazole 40 mg EC Tab PO SCH (11:08)
[2018-08-28] MEDS: Lactobacillus Acidophilus 500 MU Cap PO SCH ×2 (11:08→17:48)
[2018-08-28 16:40] LABS: INR 1.2; PROTHROMBIN TIME 12.8 SECONDS (9.7-12.2)
--- NOTE | 2018-08-28 17:59 | RAD ---
Date of service: 08/28/2018 HISTORY: Nephrolithiasis COMPARISON: 08/25/2018. TECHNIQUE: 1 view obtained. FINDINGS: BOWEL: Normal. No obstruction. No free air. BONES: Normal. OTHER FINDINGS: Position of the double J stent catheter(s): Satisfactory, right-sided without change. IMPRESSION: No significant or acute findings to account for/ related to the clinical presentation. Additional benign and/or incidental findings described above.
--- NOTE | 2018-08-28 22:27 | CP.PCM.PN ---
Subjective - Date & Time of Evaluation Date of Evaluation: 08/28/18 Time of Evaluation: 09:00 - Subjective Subjective: discussed on rounds IV rx in progress Objective - Vital Signs/Intake and Output Vital Signs (last 24 hours): Temp Pulse Resp BP Pulse Ox 97.9 F 76 20 102/66 95 08/27/18 23:20 08/27/18 23:20 08/27/18 23:20 08/27/18 23:20 08/27/18 23:20 - Medications Medications: Current Medications Acetaminophen (Tylenol 325mg Tab) 650 mg PO Q6 PRN PRN Reason: Pain, moderate (4-7) Last Admin: 08/28/18 03:37 Dose: 650 mg Heparin Sodium (Porcine) (Heparin) 5,000 units SC Q12 [facility] Last Admin: 08/28/18 11:08 Dose: 5,000 units Meropenem 1 gm/ Sodium (Chloride) 100 mls @ 100 mls/hr IVPB Q8H [facility]; Protocol Last Admin: 08/28/18 06:08 Dose: 100 mls/hr Ketorolac Tromethamine (Toradol) 30 mg IVP Q6 PRN PRN Reason: Pain, severe (8-10) Lactobacillus Acidophilus (Lactobacillus) 1 cap PO BID [facility] Last Admin: 08/28/18 11:08 Dose: 1 cap Ondansetron HCl (Zofran Inj) 4 mg IVP Q6 PRN PRN Reason: Nausea/Vomiting Pantoprazole Sodium (Protonix Ec Tab) 40 mg PO DAILY [facility] Last Admin: 08/28/18 11:08 Dose: 40 mg Pneumococcal Polyvalent Vaccine (Pneumovax 23 Vaccine) 0.5 ml IM .ONCE ONE Stop: 08/29/18 10:01 - Labs Labs: 08/28/18 06:29 08/28/18 06:29 - Constitutional Appears: Non-toxic, Chronically Ill - Head Exam Head Exam: NORMOCEPHALIC (x) - Eye Exam Eye Exam: absent: Scleral icterus Pupil Exam: NORMAL ACCOMODATION - ENT Exam ENT Exam: Mucous Membranes Dry - Respiratory Exam Respiratory Exam: Decreased Breath Sounds, Clear to Ausculation Bilateral - Cardiovascular Exam Cardiovascular Exam: REGULAR RHYTHM - GI/Abdominal Exam GI & Abdominal Exam: Distended, Soft - Rectal Exam Rectal Exam: Deferred - Exam Exam: NORMAL INSPECTION - Extremities Exam Extremities Exam: absent: Pedal Edema - Back Exam Back Exam: CVA tenderness (R), paraspinal tenderness. absent: CVA tenderness (L) - Neurological Exam Neurological Exam: Alert, Awake, Oriented x3 - Psychiatric Exam Psychiatric exam: Depressed - Skin Skin Exam: Dry Assessment and Plan (1) UTI (urinary tract infection) Status: Acute (2) Retained ureteral stent Status: Acute (3) Infection due to ESBL-producing Escherichia coli Status: Acute - Assessment and Plan (Free Text) Assessment: cont IV rx will need 14 days rx] needs to have stent removal in the near future
[2018-08-29] MEDS: Meropenem 1 GM in Sodium Chloride 0.9% 100 ML IVPB SCH ×3 (06:16→21:26)
[2018-08-29 07:55] LABS: BASO # 0.1 K/uL (0.0-0.2); BASO % 0.7 % (0.0-2.0); EOS # 0.2 K/uL (0.0-0.7); EOS % 1.7 % (0.0-4.0); LYMPH # 2.2 K/uL (1.0-4.3); LYMPH % 24.8 % (20.0-40.0); MEAN CELL VOLUME 80.1 fL (81.0-99.0); MEAN CORPUSCULAR HEMOGLOBIN 26.1 pg (27.0-31.0); MEAN CORPUSCULAR HGB CONC 32.6 g/dL (33.0-37.0); MEAN PLATELET VOLUME 9.3 fL (7.2-11.7); MONO # 0.6 K/uL (0.0-0.8); NEUT # 5.8 K/uL (1.8-7.0); NEUT % 65.8 % (50.0-75.0); NRBC % 0.1 % (0.0-2.0); RBC 4.99 Mil/uL (3.80-5.20); RED CELL DISTRIBUTION WIDTH 15.4 % (11.5-14.5); WHITE BLOOD COUNT 8.9 K/uL (4.8-10.8)
[2018-08-29 08:05] LABS: ALB/GLOB RATIO 1.2 (1.0-2.1); ALT/SGPT 24 U/L (9-52); AST/SGOT 69 U/L (14-36); BLOOD UREA NITROGEN 17 mg/dL (7-17); CALCIUM 8.7 mg/dl (8.6-10.4); GFR NON-AFRICAN AMERICAN > 60
[2018-08-29] MEDS: Lactobacillus Acidophilus 500 MU Cap PO SCH ×2 (09:16→17:06)
[2018-08-29] MEDS: Pantoprazole 40 mg EC Tab PO SCH (09:16)
[2018-08-29] MEDS ORDERED: Pneumococcal 23-Valent Vaccine IM ONE (10:00)
--- NOTE | 2018-08-29 10:30 | CP.PCM.PN ---
<Vito Mei - Last Filed: 08/29/18 17:12> Subjective - Date & Time of Evaluation Date of Evaluation: 08/29/18 Time of Evaluation: 09:00 - Subjective Subjective: PGY-[address] Garcia Patient is seen and examined at bedside. Patient continues to have back pain and mild abdominal pain, patient is on her period at this time. Patient denies burning or pain when urinating. Denies fever chills chest pain, sob, n/v/d/c or leg swelling or pain. Patient is tolerating diet and ambulating. Objective - Vital Signs/Intake and Output Vital Signs (last 24 hours): Temp Pulse Resp BP Pulse Ox 98.0 F 78 20 94/57 L 97 08/29/18 07:00 08/29/18 07:00 08/29/18 07:00 08/29/18 07:00 08/29/18 07:00 - Medications Medications: Current Medications Acetaminophen (Tylenol 325mg Tab) 650 mg PO Q6 PRN PRN Reason: Pain, moderate (4-7) Last Admin: 08/28/18 03:37 Dose: 650 mg Meropenem 1 gm/ Sodium (Chloride) 100 mls @ 100 mls/hr IVPB Q8H [facility]; Protocol Last Admin: 08/29/18 06:16 Dose: 100 mls/hr Lactobacillus Acidophilus (Lactobacillus) 1 cap PO BID [facility] Last Admin: 08/29/18 09:16 Dose: Not Given Ondansetron HCl (Zofran Inj) 4 mg IVP Q6 PRN PRN Reason: Nausea/Vomiting Pantoprazole Sodium (Protonix Ec Tab) 40 mg PO DAILY [facility] Last Admin: 08/29/18 09:16 Dose: Not Given - Labs Labs: 08/29/18 07:48 08/29/18 07:48 PT 12.8 SECONDS (9.7-12.2) H 08/28/18 16:23 INR 1.2 08/28/18 16:23 - Constitutional Appears: Non-toxic, No Acute Distress - Head Exam Head Exam: ATRAUMATIC, NORMAL INSPECTION, NORMOCEPHALIC - Eye Exam Eye Exam: EOMI - ENT Exam ENT Exam: Mucous Membranes Moist, Normal Exam - Neck Exam Neck Exam: Full ROM, Normal Inspection - Respiratory Exam Respiratory Exam: Clear to Ausculation Bilateral, NORMAL BREATHING PATTERN. absent: Rales, Rhonchi, Wheezes - Cardiovascular Exam Cardiovascular Exam: REGULAR RHYTHM, +S1, +S2 - GI/Abdominal Exam GI & Abdominal Exam: Soft, Normal Bowel Sounds. absent: Distended, Tenderness - Extremities Exam Extremities Exam: Full ROM, Normal Inspection. absent: Pedal Edema, Tenderness - Back Exam Back Exam: CVA tenderness (R), NORMAL INSPECTION. absent: CVA tenderness (L) - Neurological Exam Neurological Exam: Alert, Oriented x3 - Psychiatric Exam Psychiatric exam: Normal Affect, Normal Mood - Skin Skin Exam: Dry, Intact, Normal Color, Warm Assessment and Plan - Assessment and Plan (Free Text) Assessment: 33 year old female with pmhx of nephrolithias s/p renal stent 06/2018, lithotripsy in the [place]), admitted for evaluation of flank pain extending to groin area, positive U/A, urine culture positive for ESBL, on IV abx Merrem, ID and urology on board Plan: 1). Bilateral Nephrolithiasis Right Ureteral Stent ESBL UTI Status: Acute * Blood Cultures 08/25/18 is negative x 4 days * Urine Cultures 08/25/18 is (+) ESBL. * Repeat Urine Cultures and U/A - pending results - patient currently on her period, possibility of + RBC in urine * Continue the Meropenem 1 gm IV Q8H * Tylenol Q6 PRN, Toradol 30 mg IV Q6 PRN for pain * Urologist Dr Fontenot - KUB done, stones not seen on xray, plan for uteroscopy on , will follow up with urology recs. * F/U ID Dr. Shell - continue abx for 14 days, needs stent removal in near future 2). Prophylaxis * DVT ppx - Heparin 5000 SC Q12H, SCDs * Lactobacillus 1 capsule PO BID * Zofran 4 mg IV Q6H PRN N/V * HHD Dispo: patient most likely to go for flex uterscopy with Dr Rosas on 08/31/2018. Patient to continue IV abx for 14 days as per ID. will follow repeat urine and U/A. Plan discussed with Dr Radha Mei, PGY-1 <Ivana Garcia V - Last Filed: 08/29/18 18:08> Objective - Vital Signs/Intake and Output Vital Signs (last 24 hours): Temp Pulse Resp BP Pulse Ox 98.0 F 78 20 94/57 L 97 08/29/18 07:00 08/29/18 07:00 08/29/18 07:00 08/29/18 07:00 08/29/18 07:00 Intake and Output: 08/29/18 08/29/18 06:59 18:59 Intake Total 400 Balance 400 - Medications Medications: Current Medications Acetaminophen (Tylenol 325mg Tab) 650 mg PO Q6 PRN PRN Reason: Pain, moderate (4-7) Last Admin: 08/28/18 03:37 Dose: 650 mg Heparin Sodium (Porcine) (Heparin) 5,000 units SC Q12 [facility] Meropenem 1 gm/ Sodium (Chloride) 100 mls @ 100 mls/hr IVPB Q8H [facility]; Protocol Last Admin: 08/29/18 14:05 Dose: 100 mls/hr Ketorolac Tromethamine (Toradol) 30 mg IVP Q6 PRN PRN Reason: Pain, severe (8-10) Lactobacillus Acidophilus (Lactobacillus) 1 cap PO BID [facility] Last Admin: 08/29/18 09:16 Dose: Not Given Ondansetron HCl (Zofran Inj) 4 mg IVP Q6 PRN PRN Reason: Nausea/Vomiting Pantoprazole Sodium (Protonix Ec Tab) 40 mg PO DAILY [facility] Last Admin: 08/29/18 09:16 Dose: Not Given - Labs Labs: 08/29/18 07:48 08/29/18 07:48 PT 12.8 SECONDS (9.7-12.2) H 08/28/18 16:23 INR 1.2 08/28/18 16:23 Attending/Attestation - Attestation I have personally seen and examined this patient.: Yes I have fully participated in the care of the patient.: Yes I have reviewed all pertinent clinical information, including history, physical exam and plan: Yes Notes (Text): Patient seen, examined and case discussed with medical customer service representative. Patient seen this morning. Patient is on her menstruation, reports abdominal cramping and pain. Patient on exam has right CVA tenderness. patient is without fever and nor elevated white count while Iv abx therapy for ESBL+ urinary tract infection without adequate PO option. Urology has reviewed second abdominal xray; recommend for urologic intervention for , 08/31/18. Discussed and updated ID, recommended for 14 day course likely Meropenem given there is no adequate PO option for patient's ESBL +UTI 1. History of Nephrolithasis ESBL+ Urinary Tract Infection History of Ureteral stent placement in 07/04 Assessment/Plan * Urology (Dr. Rosas) on board-->help appreciated * Infectious Disease (Dr. Shell) on board-->help appreciated * Urine culture (08/25/18): E. Coli * Blood cultures (08/25/18): negative * Meropenem 1gm IVPB Q8H (active since 08/25/18): * Bacid 1 tab PO BID * Zofran 4mg IVP Q6H PRN nausea * Abdominal xray (08/25/18): right double J ureteral stent remains in customary position. 3mm radiopacity medial to the stent in the right hemipelvis may represent a ureteral stone in the appropriate clinical setting. No radiographic evidence for right nephrolithiasis. 8mm faint linear ca lcification overlying the left renal silhouette represent in renal stone. * CT Abdomen/pelvis (08/25/18): small right kidney with cortical scar in the upper pole. 2mm nonobstructing stone in the lower pole of the right kidney. Mild fullness in the right collecting system without obtructive uropathy. R ight ureteral stent remains in customary position. No evidence of ureteral strone. Mild compensatory hypertrophy of the left kidny. Small nonobstructing stones in the left kidney, the largest in the lower pole measures 5mm. No left hydronephrosis * Urology spoke with Resident Sigifredo; recommending for repeat KUB xray and possible cystoscopy. 2. Menstruation Assessment/Plan * patient is currently having menstruation--?reports typical 5-7 day course 3. Prophylactic measure * Protonix 40mg PO daily for GI ppx * Heparin 5000 units subq8H * Toradol 15mg IV Q6H PRN pain Disposition: urology intervention planned for , 08/31/18. ID recommending for 14 day course of IV abx which would end 09/08/18 since patient does not have insurance and there frequency is three times a day of antibiotic she will likely be completing IV abx during this hospitalization.
[2018-08-29 12:46] LABS: URINE BACTERIA RARE (<OCC)
[2018-08-29 13:01] LABS: URINE BILIRUBIN NEGATIVE (NEGATIVE); URINE BLOOD MODERATE (NEGATIVE); URINE CLARITY Clear (Clear); URINE COLOR YELLOW (YELLOW); URINE GLUCOSE (UA) NEGATIVE (Normal)
[2018-08-29 13:02] LABS: URINE LEUKOCYTE ESTERASE NEGATIVE Leu/uL (Negative); URINE PROTEIN NEGATIVE (NEGATIVE); URINE UROBILINOGEN 0.2 mg/dL (0.2-1.0)
[2018-08-30] MEDS: Meropenem 1 GM in Sodium Chloride 0.9% 100 ML IVPB SCH ×3 (06:03→21:06)
--- NOTE | 2018-08-30 08:00 | CP.PCM.PN ---
<Marva Holcomb P - Last Filed: 08/30/18 21:15> Subjective - Date & Time of Evaluation Date of Evaluation: 08/30/18 Time of Evaluation: 07:05 - Subjective Subjective: Progress note for Dr. Garcia. Patient complains of slight dysuria and some flank pain. Also states she has nasal congestion. Denies fevers, nausea, vomiting, hematuria, chest pain, shortness of breath, light headedness. Objective - Vital Signs/Intake and Output Vital Signs (last 24 hours): Temp Pulse Resp BP Pulse Ox 97.8 F 68 20 105/72 96 08/30/18 07:53 08/30/18 07:53 08/30/18 07:53 08/30/18 07:53 08/30/18 07:53 Intake and Output: 08/30/18 08/30/18 06:59 18:59 Intake Total 500 Balance 500 - Medications Medications: Current Medications Acetaminophen (Tylenol 325mg Tab) 650 mg PO Q6 PRN PRN Reason: Pain, moderate (4-7) Last Admin: 08/28/18 03:37 Dose: 650 mg Heparin Sodium (Porcine) (Heparin) 5,000 units SC Q12 [facility] Last Admin: 08/29/18 21:25 Dose: Not Given Meropenem 1 gm/ Sodium (Chloride) 100 mls @ 100 mls/hr IVPB Q8H [facility]; Protocol Last Admin: 08/30/18 06:03 Dose: 100 mls/hr Ketorolac Tromethamine (Toradol) 30 mg IVP Q6 PRN PRN Reason: Pain, severe (8-10) Lactobacillus Acidophilus (Lactobacillus) 1 cap PO BID [facility] Last Admin: 08/29/18 17:06 Dose: 1 cap Ondansetron HCl (Zofran Inj) 4 mg IVP Q6 PRN PRN Reason: Nausea/Vomiting Pantoprazole Sodium (Protonix Ec Tab) 40 mg PO DAILY [facility] Last Admin: 08/29/18 09:16 Dose: Not Given - Labs Labs: 08/29/18 07:48 08/29/18 07:48 PT 12.8 SECONDS (9.7-12.2) H 08/28/18 16:23 INR 1.2 08/28/18 16:23 - Constitutional Appears: Non-toxic, No Acute Distress - Head Exam Head Exam: ATRAUMATIC, NORMOCEPHALIC - Eye Exam Eye Exam: EOMI, PERRL - ENT Exam ENT Exam: Mucous Membranes Moist Additional comments: Nasal congestion - Neck Exam Neck Exam: Full ROM, Normal Inspection - Respiratory Exam Respiratory Exam: Clear to Ausculation Bilateral, NORMAL BREATHING PATTERN. absent: Rales, Rhonchi, Wheezes - Cardiovascular Exam Cardiovascular Exam: REGULAR RHYTHM, +S1, +S2 - GI/Abdominal Exam GI & Abdominal Exam: Soft. absent: Distended, Guarding, Tenderness, Rebound - Extremities Exam Extremities Exam: Full ROM, Normal Inspection. absent: Pedal Edema, Tenderness - Back Exam Back Exam: CVA tenderness (R). absent: CVA tenderness (L) - Neurological Exam Neurological Exam: Alert, Awake, Oriented x3 Neuro motor strength exam: Left Upper Extremity: 5, Right Upper Extremity: 5, Left Lower Extremity: 5, Right Lower Extremity: 5 - Psychiatric Exam Psychiatric exam: Normal Affect, Normal Mood - Skin Skin Exam: Dry, Normal Color, Warm Assessment and Plan - Assessment and Plan (Free Text) Plan: 33 year old female with pmhx of nephrolithias s/p renal stent 06/2018, [place]psy [place]), admitted for evaluation of flank pain extending to groin area, positive U/A, urine culture positive for ESBL, on IV abx Merrem, ID and urology on board Plan: 1). Bilateral Nephrolithiasis Right Ureteral Stent ESBL UTI Status: Acute * Blood Cultures 08/25/18 is negative x 4 days * Urine Cultures 08/25/18 is (+) ESBL. * Repeat Urine Cultures and U/A - pending results - patient currently on her period, possibility of + RBC in urine * Continue the Meropenem 1 gm IV Q8H * Tylenol Q6 PRN, Toradol 30 mg IV Q6 PRN for pain * Urologist Dr Fontenot - DANNA done, stones not seen on xray, plan for uteroscopy on , will follow up with urology recs. * F/U ID Dr. Shell - continue abx for 14 days, needs stent removal in near fut ure 2). Prophylaxis * DVT ppx - Heparin 5000 SC Q12H, SCDs * Lactobacillus 1 capsule PO BID * Zofran 4 mg IV Q6H PRN N/V * HHD Dispo: patient most likely to go for flex uterscopy with Dr Rosas on 08/31/2018. Patient to continue IV abx for 14 days as per ID. will follow repeat urine and U/A. NPO after MN. Heparin held. Discussed with Dr. Radha Holcomb, PGY-1 <Ivana Garcia V - Last Filed: 08/30/18 21:31> Objective - Vital Signs/Intake and Output Vital Signs (last 24 hours): Temp Pulse Resp BP Pulse Ox 98.2 F 70 20 102/70 100 08/30/18 15:00 08/30/18 15:00 08/30/18 15:00 08/30/18 15:00 08/30/18 15:00 - Medications Medications: Current Medications Acetaminophen (Tylenol 325mg Tab) 650 mg PO Q6 PRN PRN Reason: Pain, moderate (4-7) Last Admin: 08/30/18 21:10 Dose: 650 mg Heparin Sodium (Porcine) (Heparin) 5,000 units SC Q12 [facility] Last Admin: 08/30/18 11:01 Dose: 5,000 units Meropenem 1 gm/ Sodium (Chloride) 100 mls @ 100 mls/hr IVPB Q8H [facility]; Protocol Last Admin: 08/30/18 21:06 Dose: 100 mls/hr Ketorolac Tromethamine (Toradol) 30 mg IVP Q6 PRN PRN Reason: Pain, severe (8-10) Lactobacillus Acidophilus (Lactobacillus) 1 cap PO BID [facility] Last Admin: 08/30/18 17:04 Dose: 1 cap Ondansetron HCl (Zofran Inj) 4 mg IVP Q6 PRN PRN Reason: Nausea/Vomiting Pantoprazole Sodium (Protonix Ec Tab) 40 mg PO DAILY [facility] Last Admin: 08/30/18 11:01 Dose: 40 mg - Labs Labs: 08/30/18 08:06 08/30/18 08:06 PT 12.8 SECONDS (9.7-12.2) H 08/28/18 16:23 INR 1.2 08/28/18 16:23 Attending/Attestation - Attestation I have personally seen and examined this patient.: Yes I have fully participated in the care of the patient.: Yes I have reviewed all pertinent clinical information, including history, physical exam and plan: Yes Notes (Text): Patient seen, examined and case discussed with medical surgery nurse. Patient seen this afternoon. Patient is on her menstruation, reports abdominal cramping and pain. Patient on exam has right CVA tenderness. patient is without fever and nor elevated white count while Iv abx therapy for ESBL+ urinary tract infection without adequate PO antibiotic option. Urology has reviewed second abdominal xray; recommend for urologic intervention for , 08/31/18. Discussed and updated ID, recommended for 14 day course likely Meropenem given there is no adequate PO option for patient's ESBL +UTI until 09/08/18 Patient's repeat urine culture shows no growth X2 while on IV abx therapy. 1. History of Nephrolithasis ESBL+ Urinary Tract Infection History of Ureteral stent placement in 07/04 Assessment/Plan * Urology (Dr. Rosas) on board-->help appreciated * Infectious Disease (Dr. Shell) on board-->help appreciated * Urine culture (08/25/18): E. Coli * Repeat urine culture: no growth X2 * Blood cultures (08/25/18): negative * Meropenem 1gm IVPB Q8H (active since 08/25/18): * Bacid 1 tab PO BID * Zofran 4mg IVP Q6H PRN nausea * Abdominal xray (08/25/18): right double J ureteral stent remains in customary position. 3mm radiopacity medial to the stent in the right hemipelvis may r epresent a ureteral stone in the appropriate clinical setting. No radiographic evidence for right nephrolithiasis. 8mm faint linear calcification overlying the left renal silhouette represent in renal stone. * CT Abdomen/pelvis (08/25/18): small right kidney with cortical scar in the upper pole. 2mm nonobstructing stone in the lower pole of the right kidney. Mild fullness in the right collecting system without obtructive uropathy. Right ureteral stent remains in customary position. No evidence of ureteral strone. Mild compensatory hypertrophy of the left kidny. Small nonobstructing stones in the left kidney, the largest in the lower pole measures 5mm. No left hydronephrosis * patient most likely to go for flex uterscopy with Dr Rosas on 08/31/2018. Patient to continue IV abx for 14 days as per ID. 2. Menstruation Assessment/Plan * patient is currently having menstruation--?reports typical 5-7 day course (started on 08/28/18) 3. Prophylactic measure * Protonix 40mg PO daily for GI ppx * Heparin 5000 units subq8H-->hold tonight * Toradol 15mg IV Q6H PRN pain Disposition: urology intervention planned for , 08/31/18. ID recommending for 14 day course of IV abx which would end 09/08/18 since patient does not have insurance and there frequency is three times a day of antibiotic she will likely be completing IV abx during this hospitalization.
[2018-08-30 08:11] LABS: BASO # 0.1 K/uL (0.0-0.2); BASO % 0.7 % (0.0-2.0); EOS # 0.2 K/uL (0.0-0.7); HEMOGLOBIN 13.1 g/dL (11.0-16.0); LYMPH # 1.9 K/uL (1.0-4.3); LYMPH % 24.2 % (20.0-40.0); MEAN CELL VOLUME 79.9 fL (81.0-99.0); MEAN CORPUSCULAR HGB CONC 32.6 g/dL (33.0-37.0); MEAN PLATELET VOLUME 9.2 fL (7.2-11.7); MONO # 0.5 K/uL (0.0-0.8); MONO % 6.5 % (0.0-10.0); NEUT # 5.3 K/uL (1.8-7.0); NEUT % 65.6 % (50.0-75.0); RBC 5.05 Mil/uL (3.80-5.20); RED CELL DISTRIBUTION WIDTH 15.4 % (11.5-14.5)
[2018-08-30 08:28] LABS: ALB/GLOB RATIO 1.3 (1.0-2.1); ALBUMIN 4.1 g/dL (3.5-5.0); ALT/SGPT 50 U/L (9-52); AST/SGOT 56 U/L (14-36); BLOOD UREA NITROGEN 17 mg/dL (7-17); CALCIUM 8.8 mg/dl (8.6-10.4); GFR NON-AFRICAN AMERICAN > 60
[2018-08-30] MEDS: Pantoprazole 40 mg EC Tab PO SCH (11:01)
[2018-08-30] MEDS: Lactobacillus Acidophilus 500 MU Cap PO SCH ×2 (11:01→17:04)
[2018-08-31] MEDS: Meropenem 1 GM in Sodium Chloride 0.9% 100 ML IVPB SCH ×3 (06:17→21:38)
[2018-08-31 07:39] LABS: BASO % 0.6 % (0.0-2.0); EOS # 0.3 K/uL (0.0-0.7); EOS % 4.6 % (0.0-4.0); HEMOGLOBIN 13.1 g/dL (11.0-16.0); LYMPH % 27.1 % (20.0-40.0); MEAN CELL VOLUME 80.7 fL (81.0-99.0); MEAN CORPUSCULAR HEMOGLOBIN 26.7 pg (27.0-31.0); MEAN CORPUSCULAR HGB CONC 33.1 g/dL (33.0-37.0); MEAN PLATELET VOLUME 9.4 fL (7.2-11.7); MONO # 0.5 K/uL (0.0-0.8); MONO % 7.1 % (0.0-10.0); NEUT # 4.6 K/uL (1.8-7.0); NEUT % 60.6 % (50.0-75.0); NRBC % 0.1 % (0.0-2.0); RBC 4.92 Mil/uL (3.80-5.20); RED CELL DISTRIBUTION WIDTH 15.4 % (11.5-14.5); WHITE BLOOD COUNT 7.5 K/uL (4.8-10.8)
--- NOTE | 2018-08-31 07:45 | CP.PCM.PN ---
<Vito Mei - Last Filed: 08/31/18 16:29> Subjective - Date & Time of Evaluation Date of Evaluation: 08/31/18 Time of Evaluation: 07:30 - Subjective Subjective: PGY-1 Medicine progress note for Dr Hossein Banks service Patient is seen and examined at bedside. Patient admits to nasal itchiness and congestion, denies throat pain, coughing, fever, or chills. Patient admits to back pain mostly when changing from lying to sitting position, admits to mild pressure when urinating, denies burning at urination or blood in urine. Denies chest pain, sob, n/v/d/c or leg pain or swelling. Objective - Vital Signs/Intake and Output Vital Signs (last 24 hours): Temp Pulse Resp BP Pulse Ox 97.6 F 75 20 99/67 L 96 08/30/18 23:14 08/30/18 23:14 08/30/18 23:14 08/30/18 23:14 08/30/18 23:14 Intake and Output: 08/31/18 08/31/18 06:59 18:59 Intake Total 500 Balance 500 - Medications Medications: Current Medications Acetaminophen (Tylenol 325mg Tab) 650 mg PO Q6 PRN PRN Reason: Pain, moderate (4-7) Last Admin: 08/30/18 21:10 Dose: 650 mg Heparin Sodium (Porcine) (Heparin) 5,000 units SC Q12 [facility] Last Admin: 08/30/18 11:01 Dose: 5,000 units Meropenem 1 gm/ Sodium (Chloride) 100 mls @ 100 mls/hr IVPB Q8H [facility]; Protocol Last Admin: 08/31/18 06:17 Dose: 100 mls/hr Ketorolac Tromethamine (Toradol) 30 mg IVP Q6 PRN PRN Reason: Pain, severe (8-10) Lactobacillus Acidophilus (Lactobacillus) 1 cap PO BID [facility] Last Admin: 08/30/18 17:04 Dose: 1 cap Ondansetron HCl (Zofran Inj) 4 mg IVP Q6 PRN PRN Reason: Nausea/Vomiting Pantoprazole Sodium (Protonix Ec Tab) 40 mg PO DAILY [facility] Last Admin: 08/30/18 11:01 Dose: 40 mg - Labs Labs: 08/31/18 07:18 08/30/18 08:06 PT 12.8 SECONDS (9.7-12.2) H 08/28/18 16:23 INR 1.2 08/28/18 16:23 - Constitutional Appears: Non-toxic, No Acute Distress - Head Exam Head Exam: ATRAUMATIC, NORMOCEPHALIC - Eye Exam Eye Exam: EOMI - ENT Exam ENT Exam: Mucous Membranes Moist, Normal Exam - Neck Exam Neck Exam: Full ROM, Normal Inspection - Respiratory Exam Respiratory Exam: Clear to Ausculation Bilateral, NORMAL BREATHING PATTERN. absent: Rales, Rhonchi, Wheezes - Cardiovascular Exam Cardiovascular Exam: REGULAR RHYTHM, +S1, +S2 - GI/Abdominal Exam GI & Abdominal Exam: Soft, Normal Bowel Sounds. absent: Distended, Tenderness - Extremities Exam Extremities Exam: Full ROM, Normal Inspection. absent: Pedal Edema, Tenderness - Back Exam Back Exam: CVA tenderness (L), CVA tenderness (R), Full ROM. absent: paraspinal tenderness, vertebral tenderness - Neurological Exam Neurological Exam: Alert, Awake, Oriented x3 - Psychiatric Exam Psychiatric exam: Normal Affect, Normal Mood - Skin Skin Exam: Dry, Intact, Normal Color, Warm Assessment and Plan - Assessment and Plan (Free Text) Assessment: 33 year old female with pmhx of nephrolithias s/p renal stent 06/2018, lithotripsy in the DR), admitted for evaluation of flank pain extending to groin area, positive U/A, urine culture positive for ESBL, repeat urine cx negative, on IV abx Merrem, ID and urology on board, going for flex uretoscopy and stent removal 08/31 Plan: 1. History of Nephrolithasis ESBL+ Urinary Tract Infection History of Ureteral stent placement in 07/04 * Urine culture (08/25/18): ESBL * Repeat urine culture: no growth X2 * Blood cultures (08/25/18): negative * Abdominal xray (08/25/18): right double J ureteral stent remains in customary position. 3mm radiopacity medial to the stent in the right hemipelvis may represent a ureteral stone in the appropriate clinical setting. No radiographic evidence for right nephrolithiasis. 8mm faint linear calcification overlying the left renal silhouette represent in renal stone. * CT Abdomen/pelvis (08/25/18): small right kidney with cortical scar in the upper pole. 2mm nonobstructing stone in the lower pole of the right kidney. Mild fullness in the right collecting system without obtructive uropathy. Right ureteral stent remains in customary position. No evidence of ureteral strone. Mild compensatory hypertrophy of the left kidny. Small nonobstructing stones in the left kidney, the largest in the lower pole measures 5mm. No left hydronephrosis * patient scheduled for flex uterscopy and stent removal with Dr Rosas on 08/31/2018 @ 6:30 PM - will follow recs after procedure * Patient to continue IV abx for 14 days as per ID * Meropenem 1gm IVPB Q8H (active since 08/25/18) * Bacid 1 tab PO BID * Zofran 4mg IVP Q6H PRN nausea * Urology (Dr. Rosas) on board-->help appreciated - plan for felx uterscopy and stent removal today * Infectious Disease (Dr. Shell) on board-->help appreciated - patient to complete 14 day course IV abx 2. Menstruation * patient is currently having menstruation--?reports typical 5-7 day course (started on 08/28/18) 3. Nasal congestion/pruritus * most likely allergic rhinitis * no erythema on nasal turbinates * claritin 10mg PO x 1 4. Prophylactic measure * Protonix 40mg PO daily for GI ppx * Heparin 5000 units subq8H * Toradol 15mg IV Q6H PRN pain Disposition: urology intervention planned for , 08/31/18. will follow urology recs, ID recommending for 14 day course of IV abx until 09/08/18. Plan discussed with Dr Hossein Mei, PGY-1 <Hossein Banks J - Last Filed: 09/03/18 17:15> Objective - Vital Signs/Intake and Output Vital Signs (last 24 hours): Temp Pulse Resp BP Pulse Ox 98.6 F 83 20 104/68 98 09/03/18 15:30 09/03/18 15:30 09/03/18 15:30 09/03/18 15:30 09/03/18 15:30 Intake and Output: 09/03/18 09/03/18 06:59 18:59 Intake Total 740 Balance 740 - Medications Medications: Current Medications Acetaminophen (Tylenol 325mg Tab) 650 mg PO Q6 PRN PRN Reason: Pain, moderate (4-7) Last Admin: 08/30/18 21:10 Dose: 650 mg Meropenem 1 gm/ Sodium (Chloride) 100 mls @ 100 mls/hr IVPB Q8H [facility]; Protocol Last Admin: 09/03/18 13:34 Dose: 100 mls/hr Ketorolac Tromethamine (Toradol) 30 mg IVP Q6 PRN PRN Reason: Pain, severe (8-10) Lactobacillus Acidophilus (Lactobacillus) 1 cap PO BID [facility] Last Admin: 09/03/18 17:08 Dose: 1 cap Loratadine (Claritin) 10 mg PO DAILY PRN PRN Reason: Allergy symptoms Ondansetron HCl (Zofran Inj) 4 mg IVP Q6 PRN PRN Reason: Nausea/Vomiting Pantoprazole Sodium (Protonix Ec Tab) 40 mg PO DAILY [facility] Last Admin: 09/03/18 09:07 Dose: 40 mg - Labs Labs: 09/03/18 07:50 09/03/18 07:50 PT 12.8 SECONDS (9.7-12.2) H 08/28/18 16:23 INR 1.2 08/28/18 16:23 Attending/Attestation - Attestation I have personally seen and examined this patient.: Yes I have fully participated in the care of the patient.: Yes I have reviewed all pertinent clinical information, including history, physical exam and plan: Yes Notes (Text): 09/03/18 17:15 This is a late entry. Care of this patient was gone over in detail with resident Dr. Vito Mei. Hossein Banks D.O.
[2018-08-31] MEDS: Lactobacillus Acidophilus 500 MU Cap PO SCH ×2 (09:24→18:00)
[2018-08-31] MEDS: Pantoprazole 40 mg EC Tab PO SCH (09:25)
[2018-08-31 10:43] LABS: ALB/GLOB RATIO 1.4 (1.0-2.1); ALBUMIN 4.2 g/dL (3.5-5.0); ALT/SGPT 40 U/L (9-52); AST/SGOT 56 U/L (14-36); BLOOD UREA NITROGEN 19 mg/dL (7-17); CALCIUM 8.7 mg/dl (8.6-10.4); GFR NON-AFRICAN AMERICAN > 60
[2018-08-31] MEDS ORDERED: cefTRIAXone 1 gm 0 GM/0 ML BAG IVPB ONE (18:07)
[2018-08-31] MEDS ORDERED: Iohexol 240 (50 ml) ONE (18:08)
[2018-08-31] MEDS ORDERED: Propofol 10 mg/ml Inj (20 ML) ONE (18:47)
[2018-08-31] MEDS ORDERED: ePHEDrine 50 mg/ml Inj ONE (19:05)
[2018-08-31] MEDS ORDERED: HYDROmorphone 0.5 mg/0.5 ml ISec IVP PRN (20:29)
[2018-08-31 21:55] VITALS: RESP 20
[2018-09-01] MEDS: Meropenem 1 GM in Sodium Chloride 0.9% 100 ML IVPB SCH ×3 (05:56→21:45)
[2018-09-01 07:11] LABS: BASO # 0.1 K/uL (0.0-0.2); BASO % 0.7 % (0.0-2.0); EOS # 0.2 K/uL (0.0-0.7); EOS % 2.2 % (0.0-4.0); HEMOGLOBIN 12.5 g/dL (11.0-16.0); LYMPH # 1.7 K/uL (1.0-4.3); LYMPH % 22.1 % (20.0-40.0); MEAN CORPUSCULAR HEMOGLOBIN 25.6 pg (27.0-31.0); MONO # 0.5 K/uL (0.0-0.8); MONO % 6.1 % (0.0-10.0); NEUT # 5.4 K/uL (1.8-7.0); NEUT % 68.9 % (50.0-75.0); RBC 4.87 Mil/uL (3.80-5.20); RED CELL DISTRIBUTION WIDTH 15.6 % (11.5-14.5); WHITE BLOOD COUNT 7.9 K/uL (4.8-10.8)
--- NOTE | 2018-09-01 07:15 | CP.PCM.PN ---
<Vito Mei - Last Filed: 09/01/18 20:24> Subjective - Date & Time of Evaluation Date of Evaluation: 09/01/18 Time of Evaluation: 07:15 - Subjective Subjective: PGY-[address] Hossein Banks Hospitalist service Patient is seen and examined at bedside. Patient had ureteroscopy with stent removal yesterday, Patient states feeling well, no acute events overnight, states continues to have mild burning at urination, denies pain or pressure when urinating, states lower back pain has improved, notes her period is marketing account executive today. Denies fever, chills, chest pain, sob, n/v/d/c. tolerating diet and ambulating. Objective - Vital Signs/Intake and Output Vital Signs (last 24 hours): Temp Pulse Resp BP Pulse Ox 97.9 F 78 20 100/66 96 09/01/18 00:00 09/01/18 00:00 09/01/18 00:00 09/01/18 00:00 09/01/18 00:00 Intake and Output: 09/01/18 09/01/18 06:59 18:59 Intake Total 810 Output Total 300 Balance 510 - Medications Medications: Current Medications Acetaminophen (Tylenol 325mg Tab) 650 mg PO Q6 PRN PRN Reason: Pain, moderate (4-7) Last Admin: 08/30/18 21:10 Dose: 650 mg Heparin Sodium (Porcine) (Heparin) 5,000 units SC Q12 [facility] Last Admin: 08/31/18 09:25 Dose: 5,000 units Meropenem 1 gm/ Sodium (Chloride) 100 mls @ 100 mls/hr IVPB Q8H [facility]; Protocol Last Admin: 09/01/18 05:56 Dose: 100 mls/hr Ketorolac Tromethamine (Toradol) 30 mg IVP Q6 PRN PRN Reason: Pain, severe (8-10) Lactobacillus Acidophilus (Lactobacillus) 1 cap PO BID [facility] Last Admin: 08/31/18 18:00 Dose: Not Given Ondansetron HCl (Zofran Inj) 4 mg IVP Q6 PRN PRN Reason: Nausea/Vomiting Pantoprazole Sodium (Protonix Ec Tab) 40 mg PO DAILY [facility] Last Admin: 08/31/18 09:25 Dose: 40 mg - Labs Labs: 09/01/18 07:02 08/31/18 07:18 PT 12.8 SECONDS (9.7-12.2) H 08/28/18 16:23 INR 1.2 08/28/18 16:23 - Constitutional Appears: Non-toxic, No Acute Distress - Head Exam Head Exam: ATRAUMATIC, NORMAL INSPECTION, NORMOCEPHALIC - Eye Exam Eye Exam: EOMI, Normal appearance - ENT Exam ENT Exam: Mucous Membranes Moist, Normal Exam - Neck Exam Neck Exam: Full ROM, Normal Inspection - Respiratory Exam Respiratory Exam: Clear to Ausculation Bilateral, NORMAL BREATHING PATTERN - Cardiovascular Exam Cardiovascular Exam: REGULAR RHYTHM - GI/Abdominal Exam GI & Abdominal Exam: Soft, Normal Bowel Sounds - Extremities Exam Extremities Exam: Full ROM, Normal Inspection - Back Exam Back Exam: Full ROM. absent: CVA tenderness (L), CVA tenderness (R) - Neurological Exam Neurological Exam: Alert, Awake, Oriented x3 - Psychiatric Exam Psychiatric exam: Normal Affect, Normal Mood - Skin Skin Exam: Dry, Intact, Normal Color, Warm Assessment and Plan - Assessment and Plan (Free Text) Assessment: 33 year old female with pmhx of nephrolithias s/p renal stent 06/2018, lithotripsy in the DR), admitted for evaluation of flank pain extending to groin area, positive U/A, urine culture positive for ESBL, repeat urine cx negative, on IV abx Merrem, ID and urology on board, going for flex uretoscopy and stent removal 08/31 Plan: 1. History of Nephrolithasis ESBL+ Urinary Tract Infection History of Ureteral stent placement in 07/04 * Urine culture (08/25/18): ESBL * Repeat urine culture: no growth X2 * Blood cultures (08/25/18): negative * Abdominal xray (08/25/18): right double J ureteral stent remains in customary position. 3mm radiopacity medial to the stent in the right hemipelvis may represent a ureteral stone in the appropriate clinical setting. No radiographic evidence for right nephrolithiasis. 8mm faint linear sal cification overlying the left renal silhouette represent in renal stone. * CT Abdomen/pelvis (08/25/18): small right kidney with cortical scar in the upper pole. 2mm nonobstructing stone in the lower pole of the right kidney. Mild fullness in the right collecting system without obtructive uropathy. Ri ght ureteral stent remains in customary position. No evidence of ureteral strone. Mild compensatory hypertrophy of the left kidny. Small nonobstructing stones in the left kidney, the largest in the lower pole measures 5mm. No left hydronephrosis * Meropenem 1gm IVPB Q8H (active since 08/25/18) * Bacid 1 tab PO BID * Zofran 4mg IVP Q6H PRN nausea * * Urology (Dr. Rosas) on board-->help appreciated - uteroscopy, cystoscopy and stent removal, stone was not able to be removed, patient to follow up out patient * Infectious Disease (Dr. Shell) on board-->help appreciated - patient to complete 14 day course IV abx * Status: acute 2. Menstruation * patient is currently having menstruation--?reports typical 5-7 day course (started on 08/28/18) * Improving at this time * status: acute 3. Nasal congestion/pruritus, possible allergic rhinitis * most likely allergic rhinitis * no erythema on nasal turbinates * claritin 10mg PO PRN for allergy symptoms * status: acute 4. Prophylactic measure * Protonix 40mg PO daily for GI ppx * Heparin 5000 units subq8H * Toradol 15mg IV Q6H PRN pain Dispo: patient to continue 14 day course of IV abx, will likely be discharged 09/09/2018. will follow up urology recs. Plan discussed with Dr Hossein Mei, PGY-1 <Hossein Banks J - Last Filed: 09/03/18 17:15> Objective - Vital Signs/Intake and Output Vital Signs (last 24 hours): Temp Pulse Resp BP Pulse Ox 98.6 F 83 20 104/68 98 09/03/18 15:30 09/03/18 15:30 09/03/18 15:30 09/03/18 15:30 09/03/18 15:30 Intake and Output: 09/03/18 09/03/18 06:59 18:59 Intake Total 740 Balance 740 - Medications Medications: Current Medications Acetaminophen (Tylenol 325mg Tab) 650 mg PO Q6 PRN PRN Reason: Pain, moderate (4-7) Last Admin: 08/30/18 21:10 Dose: 650 mg Meropenem 1 gm/ Sodium (Chloride) 100 mls @ 100 mls/hr IVPB Q8H [facility]; Protocol Last Admin: 09/03/18 13:34 Dose: 100 mls/hr Ketorolac Tromethamine (Toradol) 30 mg IVP Q6 PRN PRN Reason: Pain, severe (8-10) Lactobacillus Acidophilus (Lactobacillus) 1 cap PO BID [facility] Last Admin: 09/03/18 17:08 Dose: 1 cap Loratadine (Claritin) 10 mg PO DAILY PRN PRN Reason: Allergy symptoms Ondansetron HCl (Zofran Inj) 4 mg IVP Q6 PRN PRN Reason: Nausea/Vomiting Pantoprazole Sodium (Protonix Ec Tab) 40 mg PO DAILY [facility] Last Admin: 09/03/18 09:07 Dose: 40 mg - Labs Labs: 09/03/18 07:50 09/03/18 07:50 PT 12.8 SECONDS (9.7-12.2) H 08/28/18 16:23 INR 1.2 08/28/18 16:23 Attending/Attestation - Attestation I have personally seen and examined this patient.: Yes I have fully participated in the care of the patient.: Yes I have reviewed all pertinent clinical information, including history, physical exam and plan: Yes Notes (Text): 09/03/18 17:13 This is a late entry. Care of this patient was gone over in detail with resident Dr. Vito Mei. Hossein Banks D.O.
[2018-09-01 08:11] LABS: ALB/GLOB RATIO 1.2 (1.0-2.1); ALBUMIN 3.8 g/dL (3.5-5.0); ALT/SGPT 27 U/L (9-52); AST/SGOT 33 U/L (14-36); BLOOD UREA NITROGEN 14 mg/dL (7-17); CALCIUM 8.7 mg/dl (8.6-10.4); GFR NON-AFRICAN AMERICAN > 60
[2018-09-01] MEDS: Lactobacillus Acidophilus 500 MU Cap PO SCH ×2 (09:51→17:19)
[2018-09-01] MEDS: Pantoprazole 40 mg EC Tab PO SCH (09:51)
--- NOTE | 2018-09-01 14:13 | RAD ---
Date of service: 08/31/2018 PROCEDURE: Intraoperative Fluoroscopy. HISTORY: RT. RENAL CALCULI FINDINGS: Fluoroscopic assistance was provided for retrograde. Please refer to the operative report from JANI Lynch. Total fluoroscopic time (continuous mode) utilized during the procedure 534.8 seconds. Total exam DLP: 5.96 (mGy).
--- NOTE | 2018-09-01 14:14 | RAD ---
Date of service: 08/31/2018 HISTORY: RT. RENAL CALCULI COMPARISON: 08/28/2018. Plain film single-view abdomen. 08/25/2018 CT abdomen and pelvis. TECHNIQUE: 1 view obtained. FINDINGS: BOWEL: Normal. No obstruction. No free air. BONES: Normal. OTHER FINDINGS: Position of the double J stent catheter(s): Satisfactory position on the right. IMPRESSION: No acute or significant findings related to/ accounting for the clinical presentation. Additional benign and/or incidental findings described above. No significant interval change compared to the prior examination(s).
--- NOTE | 2018-09-01 15:13 | CP.PCM.PN ---
Subjective - Date & Time of Evaluation Date of Evaluation: 09/01/18 Time of Evaluation: 08:00 - Subjective Subjective: afeb nad Objective - Vital Signs/Intake and Output Vital Signs (last 24 hours): Temp Pulse Resp BP Pulse Ox 98.2 F 82 20 101/68 96 09/01/18 07:00 09/01/18 07:00 09/01/18 07:00 09/01/18 07:00 09/01/18 07:00 Intake and Output: 09/01/18 09/01/18 06:59 18:59 Intake Total 810 700 Output Total 300 Balance 510 700 - Medications Medications: Current Medications Acetaminophen (Tylenol 325mg Tab) 650 mg PO Q6 PRN PRN Reason: Pain, moderate (4-7) Last Admin: 08/30/18 21:10 Dose: 650 mg Heparin Sodium (Porcine) (Heparin) 5,000 units SC Q12 [facility] Last Admin: 09/01/18 10:11 Dose: Not Given Meropenem 1 gm/ Sodium (Chloride) 100 mls @ 100 mls/hr IVPB Q8H [facility]; Protocol Last Admin: 09/01/18 14:08 Dose: 100 mls/hr Ketorolac Tromethamine (Toradol) 30 mg IVP Q6 PRN PRN Reason: Pain, severe (8-10) Lactobacillus Acidophilus (Lactobacillus) 1 cap PO BID [facility] Last Admin: 09/01/18 09:51 Dose: 1 cap Ondansetron HCl (Zofran Inj) 4 mg IVP Q6 PRN PRN Reason: Nausea/Vomiting Pantoprazole Sodium (Protonix Ec Tab) 40 mg PO DAILY [facility] Last Admin: 09/01/18 09:51 Dose: 40 mg - Labs Labs: 09/01/18 07:02 09/01/18 07:02 PT 12.8 SECONDS (9.7-12.2) H 08/28/18 16:23 INR 1.2 08/28/18 16:23 - Constitutional Appears: Non-toxic, Chronically Ill - Head Exam Head Exam: NORMOCEPHALIC - Eye Exam Eye Exam: absent: Scleral icterus - ENT Exam ENT Exam: Mucous Membranes Dry - Neck Exam Neck Exam: absent: Lymphadenopathy - Respiratory Exam Respiratory Exam: Decreased Breath Sounds - Cardiovascular Exam Cardiovascular Exam: REGULAR RHYTHM - GI/Abdominal Exam GI & Abdominal Exam: Distended, Soft - Rectal Exam Rectal Exam: Deferred Assessment and Plan (1) UTI (urinary tract infection) Status: Acute (2) Retained ureteral stent Status: Acute (3) Infection due to ESBL-producing Escherichia coli Status: Acute - Assessment and Plan (Free Text) Assessment: iv rx renewed
--- NOTE | 2018-09-02 00:23 | CP.PCM.PN ---
<Guilherme Vega M - Last Filed: 09/02/18 06:18> Subjective - Date & Time of Evaluation Date of Evaluation: 09/02/18 Time of Evaluation: 05:20 - Subjective Subjective: Medicine progress note for Dr. Pedro Banks Patient seen and examined at bedside. Patient lying in bed comfortably. Patient reports some persistent pain on urination; however, denies any hematuria. Pt reports no headches, vision changes, chest pain, SOB, cough, abdominal pain, nausea, vomiting, constipation. Patient reports menstrual spotting. Objective - Vital Signs/Intake and Output Vital Signs (last 24 hours): Temp Pulse Resp BP Pulse Ox 98.9 F 84 20 95/60 L 97 09/01/18 16:04 09/01/18 16:04 09/01/18 16:04 09/01/18 16:04 09/01/18 16:04 Intake and Output: 09/01/18 09/02/18 18:59 06:59 Intake Total 700 300 Balance 700 300 - Medications Medications: Current Medications Acetaminophen (Tylenol 325mg Tab) 650 mg PO Q6 PRN PRN Reason: Pain, moderate (4-7) Last Admin: 08/30/18 21:10 Dose: 650 mg Heparin Sodium (Porcine) (Heparin) 5,000 units SC Q12 [facility] Last Admin: 09/01/18 21:43 Dose: 5,000 units Meropenem 1 gm/ Sodium (Chloride) 100 mls @ 100 mls/hr IVPB Q8H [facility]; Protocol Last Admin: 09/01/18 21:45 Dose: 100 mls/hr Ketorolac Tromethamine (Toradol) 30 mg IVP Q6 PRN PRN Reason: Pain, severe (8-10) Lactobacillus Acidophilus (Lactobacillus) 1 cap PO BID [facility] Last Admin: 09/01/18 17:19 Dose: 1 cap Loratadine (Claritin) 10 mg PO DAILY PRN PRN Reason: Allergy symptoms Ondansetron HCl (Zofran Inj) 4 mg IVP Q6 PRN PRN Reason: Nausea/Vomiting Pantoprazole Sodium (Protonix Ec Tab) 40 mg PO DAILY [facility] Last Admin: 09/01/18 09:51 Dose: 40 mg - Labs Labs: 09/01/18 07:02 09/01/18 07:02 PT 12.8 SECONDS (9.7-12.2) H 08/28/18 16:23 INR 1.2 08/28/18 16:23 - Constitutional Appears: Non-toxic, No Acute Distress - Head Exam Head Exam: NORMAL INSPECTION - Eye Exam Eye Exam: EOMI, Normal appearance - ENT Exam ENT Exam: Mucous Membranes Moist - Respiratory Exam Respiratory Exam: Clear to Ausculation Bilateral, NORMAL BREATHING PATTERN. absent: Rales, Rhonchi, Wheezes - Cardiovascular Exam Cardiovascular Exam: +S1, +S2. absent: Murmur - GI/Abdominal Exam GI & Abdominal Exam: Soft, Normal Bowel Sounds. absent: Firm, Guarding, Rigid Additional comments: Pain in left lower abdominal region on deep palpation No CVA tendernes - Extremities Exam Extremities Exam: Full ROM, Normal Inspection. absent: Pedal Edema - Back Exam Back Exam: absent: CVA tenderness (L), CVA tenderness (R) - Neurological Exam Neurological Exam: Alert, Awake, Oriented x3 - Psychiatric Exam Psychiatric exam: Normal Affect, Normal Mood - Skin Skin Exam: Dry, Intact, Normal Color, Warm Assessment and Plan - Assessment and Plan (Free Text) Assessment: 33 year old female with pmhx of nephrolithias s/p renal stent 06/2018, lithotripsy in the [place]), admitted for evaluation of flank pain extending to groin area, positive U/A, urine culture positive for ESBL, repeat urine cx negative, on IV abx Merrem, ID and urology on board, s/p flex uretoscopy and stent removal 08/31 Plan: 1. History of Nephrolithasis ESBL+ Urinary Tract Infection History of Ureteral stent placement in 07/04 * Urine culture (08/25/18): ESBL * Repeat urine culture: no growth X2 * Blood cultures (08/25/18): negative * Abdominal xray (08/25/18): right double J ureteral stent remains in customary position. 3mm radiopacity medial to the stent in the right hemipelvis may represent a ureteral stone in the appropriate clinical setting. No radiograph ic evidence for right nephrolithiasis. 8mm faint linear calcification overlying the left renal silhouette represent in renal stone. * CT Abdomen/pelvis (08/25/18): small right kidney with cortical scar in the upper pole. 2mm nonobstructing stone in the lower pole of the right kidney. Mild fullness in the right collecting system without obtructive uropathy. Right ureteral stent remains in customary position. No evidence of ureteral strone. Mild compensatory hypertrophy of the left kidny. Small nonobstructing stones in the left kidney, the largest in the lower pole measures 5mm. No left hydronephrosis * Meropenem 1gm IVPB Q8H (active since 08/25/18) * Bacid 1 tab PO BID * Zofran 4mg IVP Q6H PRN nausea * Urology (Dr. Rosas) on board-->help appreciated - uteroscopy, cystoscopy and stent removal, stone was not able to be removed, patient to follow up outpatient * Infectious Disease (Dr. Shell) on board-->help appreciated - patient to complete 14 day course IV abx * Status: acute 2. Menstruation * patient is currently having menstruation--?reports typical 5-7 day course (started on 08/28/18) * Improving at this time * status: acute 3. Nasal congestion/pruritus, possible allergic rhinitis * most likely allergic rhinitis * no erythema on nasal turbinates * claritin 10mg PO PRN for allergy symptoms * status: acute 4. Prophylactic measure * Protonix 40mg PO daily for GI ppx * Heparin 5000 units subq8H * Toradol 15mg IV Q6H PRN pain Dispo: patient to continue 14 day course of IV abx, will likely be discharged 09/09/2018. will follow up urology recs. Will discuss with Dr. Pedro Banks <Hossein Banks - Last Filed: 09/02/18 09:41> Objective - Vital Signs/Intake and Output Vital Signs (last 24 hours): Temp Pulse Resp BP Pulse Ox 97.3 F L 76 20 93/61 L 100 09/02/18 08:04 09/02/18 08:04 09/02/18 08:04 09/02/18 08:04 09/02/18 08:04 Intake and Output: 09/02/18 09/02/18 06:59 18:59 Intake Total 640 Balance 640 - Medications Medications: Current Medications Acetaminophen (Tylenol 325mg Tab) 650 mg PO Q6 PRN PRN Reason: Pain, moderate (4-7) Last Admin: 08/30/18 21:10 Dose: 650 mg Heparin Sodium (Porcine) (Heparin) 5,000 units SC Q12 [facility] Last Admin: 09/01/18 21:43 Dose: 5,000 units Meropenem 1 gm/ Sodium (Chloride) 100 mls @ 100 mls/hr IVPB Q8H [facility]; Protocol Last Admin: 09/02/18 05:35 Dose: 100 mls/hr Ketorolac Tromethamine (Toradol) 30 mg IVP Q6 PRN PRN Reason: Pain, severe (8-10) Lactobacillus Acidophilus (Lactobacillus) 1 cap PO BID [facility] Last Admin: 09/01/18 17:19 Dose: 1 cap Loratadine (Claritin) 10 mg PO DAILY PRN PRN Reason: Allergy symptoms Ondansetron HCl (Zofran Inj) 4 mg IVP Q6 PRN PRN Reason: Nausea/Vomiting Pantoprazole Sodium (Protonix Ec Tab) 40 mg PO DAILY [facility] Last Admin: 09/01/18 09:51 Dose: 40 mg - Labs Labs: 09/02/18 06:56 09/02/18 06:56 PT 12.8 SECONDS (9.7-12.2) H 08/28/18 16:23 INR 1.2 08/28/18 16:23 Attending/Attestation - Attestation I have personally seen and examined this patient.: Yes I have fully participated in the care of the patient.: Yes I have reviewed all pertinent clinical information, including history, physical exam and plan: Yes Notes (Text): 09/02/18 09:37 Patient was seen and examined at 9:25 AM 09/02/18 Bed 354 A Care of this patient was gone over with resident Dr. Leticia Vega. Please note that the last day of menstruation for this patient was yesterday. Also upon FULL ROS: Pressure like sensation when she urinates is less and less everyday as well as the bilateral flank pain Moving her bowels normally: soft, NO blood/black stools NO other complaints upon FULL ROS HEENT, Cardio, Resp, GI, Ext, CN II through XII exams were unremarkable. Disposition: NO good PO to IV switch and in light of the Meropenem being required to be given 3x/day, outpatient infusion set up on 3T would not be feasible. Therefore she will finish the IV Meropenem on the night of 09/08/18 and will be discharge on morning 09/09/18. Hossein Banks D.O.
[2018-09-02] MEDS: Meropenem 1 GM in Sodium Chloride 0.9% 100 ML IVPB SCH ×3 (05:35→21:30)
[2018-09-02 07:21] LABS: ALB/GLOB RATIO 1.3 (1.0-2.1); ALT/SGPT 23 U/L (9-52); AST/SGOT 24 U/L (14-36); BLOOD UREA NITROGEN 18 mg/dL (7-17); CALCIUM 8.6 mg/dl (8.6-10.4); GFR NON-AFRICAN AMERICAN > 60
[2018-09-02 07:24] LABS: BASO % 0.7 % (0.0-2.0); EOS # 0.2 K/uL (0.0-0.7); EOS % 2.8 % (0.0-4.0); HEMOGLOBIN 12.6 g/dL (11.0-16.0); LYMPH # 2.2 K/uL (1.0-4.3); LYMPH % 31.3 % (20.0-40.0); MEAN CELL VOLUME 80.3 fL (81.0-99.0); MEAN CORPUSCULAR HGB CONC 33.7 g/dL (33.0-37.0); MEAN PLATELET VOLUME 9.6 fL (7.2-11.7); MONO # 0.5 K/uL (0.0-0.8); MONO % 6.8 % (0.0-10.0); NEUT # 4.1 K/uL (1.8-7.0); NEUT % 58.4 % (50.0-75.0); NRBC % 0.2 % (0.0-2.0); RBC 4.64 Mil/uL (3.80-5.20); RED CELL DISTRIBUTION WIDTH 15.4 % (11.5-14.5)
--- NOTE | 2018-09-02 08:11 | OP ---
PROCEDURE DATE: 08/31/2018 This is a female, age 33, the patient came into the emergency room via [place]. The patient had a stent in place on admission to the hospital on the right side. Stent was on the right side. A CAT scan revealed a 4 mm stone in the lower pole of the right kidney and multiple small calculi within the lower pole, but approximately 1-2 mm, includes the possibility of a calculi causing obstruction prior to the stent insertion. The stent was brought down through the urethra. A 3.5 wire was put through the stent. The stent removed. A 3.5 wire was then inserted through a flexible ureteroscope into the right kidney. Identification of the calculi revealed mainly 1 and 2 mm calculi. A kidney stone of approximately 4 mm was noted, but unfortunately because of the infrequent via the anesthesia, difficult to isolate and capture the ureteral calculus. At this point, there was no further ability to accomplish removal of the calculus. The ureteroscope was removed. The patient was left without a stent with the anticipation that the small calculi there and even a 4 mm stone should be able to pass easily through the ureter had a stent in there for approximately a month or two. At the end of the procedure, the patient tolerated the procedure well, left the OR in good condition. Hermelindo Rosas MD
[2018-09-02] MEDS: Pantoprazole 40 mg EC Tab PO SCH (09:44)
[2018-09-02] MEDS: Lactobacillus Acidophilus 500 MU Cap PO SCH ×2 (09:44→17:41)
--- NOTE | 2018-09-02 23:23 | CP.PCM.PN ---
Subjective - Date & Time of Evaluation Date of Evaluation: 09/02/18 Time of Evaluation: 08:00 - Subjective Subjective: no fever less pain stent out Objective - Vital Signs/Intake and Output Vital Signs (last 24 hours): Temp Pulse Resp BP Pulse Ox 98.2 F 90 20 105/72 98 09/02/18 15:30 09/02/18 15:30 09/02/18 15:30 09/02/18 15:30 09/02/18 16:46 Intake and Output: 09/02/18 09/03/18 18:59 06:59 Intake Total 580 400 Balance 580 400 - Medications Medications: Current Medications Acetaminophen (Tylenol 325mg Tab) 650 mg PO Q6 PRN PRN Reason: Pain, moderate (4-7) Last Admin: 08/30/18 21:10 Dose: 650 mg Heparin Sodium (Porcine) (Heparin) 5,000 units SC Q12 [facility] BEDS AT [facility] Last Admin: 09/02/18 21:30 Dose: 5,000 units Meropenem 1 gm/ Sodium (Chloride) 100 mls @ 100 mls/hr IVPB Q8H [facility] BEDS AT [facility]; Protocol Last Admin: 09/02/18 21:30 Dose: 100 mls/hr Ketorolac Tromethamine (Toradol) 30 mg IVP Q6 PRN PRN Reason: Pain, severe (8-10) Lactobacillus Acidophilus (Lactobacillus) 1 cap PO BID [facility] 234 B[facility]S AT [facility] Last Admin: 09/02/18 17:41 Dose: 1 cap Loratadine (Claritin) 10 mg PO DAILY PRN PRN Reason: Allergy symptoms Ondansetron HCl (Zofran Inj) 4 mg IVP Q6 PRN PRN Reason: Nausea/Vomiting Pantoprazole Sodium (Protonix Ec Tab) 40 mg PO DAILY [facility] 234 BEDS AT [facility] Last Admin: 09/02/18 09:44 Dose: 40 mg - Labs Labs: 09/02/18 06:56 09/02/18 06:56 PT 12.8 SECONDS (9.7-12.2) H 08/28/18 16:23 INR 1.2 08/28/18 16:23 - Constitutional Appears: Non-toxic, Chronically Ill - Head Exam Head Exam: ATRAUMATIC, NORMAL INSPECTION, NORMOCEPHALIC - Eye Exam Eye Exam: EOMI, Normal appearance, PERRL Pupil Exam: NORMAL ACCOMODATION, PERRL - ENT Exam ENT Exam: Mucous Membranes Moist, Normal Exam - Neck Exam Neck Exam: Full ROM, Normal Inspection. absent: Lymphadenopathy - Respiratory Exam Respiratory Exam: Clear to Ausculation Bilateral, NORMAL BREATHING PATTERN - Cardiovascular Exam Cardiovascular Exam: REGULAR RHYTHM, +S1, +S2. absent: Murmur - GI/Abdominal Exam GI & Abdominal Exam: Soft, Normal Bowel Sounds. absent: Tenderness - Rectal Exam Rectal Exam: Deferred - Extremities Exam Extremities Exam: Full ROM, Normal Capillary Refill, Normal Inspection. absent: Joint Swelling, Pedal Edema - Back Exam Back Exam: NORMAL INSPECTION - Neurological Exam Neurological Exam: Alert, Awake, CN II-XII Intact, Normal Gait, Oriented x3 - Psychiatric Exam Psychiatric exam: Normal Affect, Normal Mood - Skin Skin Exam: Dry, Intact, Normal Color, Warm Assessment and Plan (1) UTI (urinary tract infection) Status: Acute (2) Retained ureteral stent Status: Acute (3) Infection due to ESBL-producing Escherichia coli Status: Acute - Assessment and Plan (Free Text) Assessment: cont iv rx as ordered
--- NOTE | 2018-09-03 05:02 | CP.PCM.PN ---
<VegaSkylars M - Last Filed: 09/03/18 06:37> Subjective - Date & Time of Evaluation Date of Evaluation: 09/03/18 Time of Evaluation: 05:15 - Subjective Subjective: Medicine progress note for Hospitalist Dr. Pedro Banks Pt seen and examined at bedside. Patient lying in bed comfortably. Pt reports less pressure like sensation on urination, improved from previous days. Pt reports no headaches, vision changes, chest pain, SOB, cough, abdominal pain, nausea, vomiting, constipation. Patient reports completion of her menstrual period. Objective - Vital Signs/Intake and Output Vital Signs (last 24 hours): Temp Pulse Resp BP Pulse Ox 98.2 F 77 20 102/67 95 09/03/18 00:00 09/03/18 00:00 09/03/18 00:00 09/03/18 00:00 09/03/18 00:00 Intake and Output: 09/02/18 09/03/18 18:59 06:59 Intake Total 580 400 Balance 580 400 - Medications Medications: Current Medications Acetaminophen (Tylenol 325mg Tab) 650 mg PO Q6 PRN PRN Reason: Pain, moderate (4-7) Last Admin: 08/30/18 21:10 Dose: 650 mg Heparin Sodium (Porcine) (Heparin) 5,000 units SC Q12 [facility] Last Admin: 09/02/18 21:30 Dose: 5,000 units Meropenem 1 gm/ Sodium (Chloride) 100 mls @ 100 mls/hr IVPB Q8H [facility]; Protocol Last Admin: 09/02/18 21:30 Dose: 100 mls/hr Ketorolac Tromethamine (Toradol) 30 mg IVP Q6 PRN PRN Reason: Pain, severe (8-10) Lactobacillus Acidophilus (Lactobacillus) 1 cap PO BID [facility] Last Admin: 09/02/18 17:41 Dose: 1 cap Loratadine (Claritin) 10 mg PO DAILY PRN PRN Reason: Allergy symptoms Ondansetron HCl (Zofran Inj) 4 mg IVP Q6 PRN PRN Reason: Nausea/Vomiting Pantoprazole Sodium (Protonix Ec Tab) 40 mg PO DAILY [facility] Last Admin: 09/02/18 09:44 Dose: 40 mg - Labs Labs: 09/02/18 06:56 09/02/18 06:56 PT 12.8 SECONDS (9.7-12.2) H 08/28/18 16:23 INR 1.2 08/28/18 16:23 - Constitutional Appears: Non-toxic, No Acute Distress - Head Exam Head Exam: NORMAL INSPECTION - Eye Exam Eye Exam: EOMI, Normal appearance - ENT Exam ENT Exam: Mucous Membranes Moist - Respiratory Exam Respiratory Exam: Clear to Ausculation Bilateral, NORMAL BREATHING PATTERN. absent: Rales, Rhonchi, Wheezes - Cardiovascular Exam Cardiovascular Exam: +S1, +S2. absent: Murmur - GI/Abdominal Exam GI & Abdominal Exam: Soft, Normal Bowel Sounds Additional comments: No CVA tendernes - Extremities Exam Extremities Exam: Full ROM, Normal Inspection. absent: Calf Tenderness, Pedal Edema - Back Exam Back Exam: absent: CVA tenderness (L), CVA tenderness (R) - Neurological Exam Neurological Exam: Alert, Awake, Oriented x3 - Psychiatric Exam Psychiatric exam: Normal Affect, Normal Mood - Skin Skin Exam: Dry, Intact, Normal Color, Warm. absent: Rash Assessment and Plan - Assessment and Plan (Free Text) Assessment: 33 year old female with pmhx of nephrolithias s/p renal stent 06/2018, lith otripsy in the [place]), admitted for evaluation of flank pain extending to groin area, positive U/A, urine culture positive for ESBL, repeat urine cx negative, on IV abx Merrem, ID and urology on board, s/p flex uretoscopy and stent removal 08/31 Plan: 1. History of Nephrolithasis ESBL+ Urinary Tract Infection History of Ureteral stent placement in 07/04 * Urine culture (08/25/18): ESBL * Repeat urine culture: no growth X2 * Blood cultures (08/25/18): negative * Abdominal xray (08/25/18): right double J ureteral stent remains in customary position. 3mm radiopacity medial to the stent in the right hemipelvis may represent a ureteral stone in the appropriate clinical setting. No radiographic evidence for right nephrolithiasis. 8mm faint linear calcification overlying the left renal silhouette represent in renal stone. * CT Abdomen/pelvis (08/25/18): small right kidney with cortical scar in the upper pole. 2mm nonobstructing stone in the lower pole of the right kidney. Mild fullness in the right collecting system without obtructive uropathy. Right ureteral stent remains in customary position. No evidence of ureteral strone. Mild compensatory hypertrophy of the left kidny. Small nonobstructing stones in the left kidney, the largest in the lower pole measures 5mm. No left hydronephrosis * Meropenem 1gm IVPB Q8H (active since 08/25/18) * Bacid 1 tab PO BID * Zofran 4mg IVP Q6H PRN nausea * Urology (Dr. Rosas) on board-->help appreciated - uteroscopy, cystoscopy and stent removal, stone was not able to be removed, patient to follow up outpatient * Infectious Disease (Dr. Shell) on board-->help appreciated - patient to complete 14 day course IV abx * Status: acute 2. Menstruation * patient is currently having menstruation--?reports typical 5-7 day course (started on 08/28/18) * completed * status: acute 3. Nasal congestion/pruritus, possible allergic rhinitis * most likely allergic rhinitis * no erythema on nasal turbinates * claritin 10mg PO PRN for allergy symptoms * status: acute 4. Prophylactic measure * Protonix 40mg PO daily for GI ppx * Heparin 5000 units subq8H * Toradol 15mg IV Q6H PRN pain Dispo: patient to continue 14 day course of IV abx (meropenum required and no good switch from PO to IV & Q8H dosing so not a viable candidate for outpatient infusion), will likely be discharged 09/09/2018. will follow up urology recs. Will discuss with Dr. Pedro Banks <Hossein Banks - Last Filed: 09/03/18 17:13> Objective - Vital Signs/Intake and Output Vital Signs (last 24 hours): Temp Pulse Resp BP Pulse Ox 98.6 F 83 20 104/68 98 09/03/18 15:30 09/03/18 15:30 09/03/18 15:30 09/03/18 15:30 09/03/18 15:30 Intake and Output: 09/03/18 09/03/18 06:59 18:59 Intake Total 740 Balance 740 - Medications Medications: Current Medications Acetaminophen (Tylenol 325mg Tab) 650 mg PO Q6 PRN PRN Reason: Pain, moderate (4-7) Last Admin: 08/30/18 21:10 Dose: 650 mg Meropenem 1 gm/ Sodium (Chloride) 100 mls @ 100 mls/hr IVPB Q8H [facility]; Protocol Last Admin: 09/03/18 13:34 Dose: 100 mls/hr Ketorolac Tromethamine (Toradol) 30 mg IVP Q6 PRN PRN Reason: Pain, severe (8-10) Lactobacillus Acidophilus (Lactobacillus) 1 cap PO BID [facility] Last Admin: 09/03/18 17:08 Dose: 1 cap Loratadine (Claritin) 10 mg PO DAILY PRN PRN Reason: Allergy symptoms Ondansetron HCl (Zofran Inj) 4 mg IVP Q6 PRN PRN Reason: Nausea/Vomiting Pantoprazole Sodium (Protonix Ec Tab) 40 mg PO DAILY [facility] Last Admin: 09/03/18 09:07 Dose: 40 mg - Labs Labs: 09/03/18 07:50 09/03/18 07:50 PT 12.8 SECONDS (9.7-12.2) H 08/28/18 16:23 INR 1.2 08/28/18 16:23 Attending/Attestation - Attestation I have personally seen and examined this patient.: Yes I have fully participated in the care of the patient.: Yes I have reviewed all pertinent clinical information, including history, physical exam and plan: Yes Notes (Text): 09/03/18 17:12 Patient was seen and examined at 2:00 PM 09/03/18 Bed 354 A Care of this patient was gone over with resident Dr. Leticia Vega. Please note that the last day of menstruation for this patient was 09/01/18. Also upon FULL ROS: Pressure like sensation when she urinates is less and less everyday as well as the bilateral flank pain Moving her bowels normally: soft, NO blood/black stools NO other complaints upon FULL ROS HEENT, Cardio, Resp, GI, Ext, CN II through XII exams were unremarkable. Disposition: NO good PO to IV switch and in light of the Meropenem being required to be given 3x/day, outpatient infusion set up on 3T would not be feasible. Therefore she will finish the IV Meropenem on the night of 09/08/18 and will be discharge on morning 09/09/18. Patient is aware of plan. Hossein Banks D.O.
[2018-09-03] MEDS: Meropenem 1 GM in Sodium Chloride 0.9% 100 ML IVPB SCH ×3 (05:03→21:01)
[2018-09-03 08:12] LABS: BASO % 0.7 % (0.0-2.0); EOS # 0.2 K/uL (0.0-0.7); EOS % 2.3 % (0.0-4.0); HEMOGLOBIN 12.7 g/dL (11.0-16.0); LYMPH # 2.3 K/uL (1.0-4.3); LYMPH % 33.3 % (20.0-40.0); MEAN CELL VOLUME 80.5 fL (81.0-99.0); MEAN CORPUSCULAR HEMOGLOBIN 26.7 pg (27.0-31.0); MEAN CORPUSCULAR HGB CONC 33.2 g/dL (33.0-37.0); MEAN PLATELET VOLUME 9.5 fL (7.2-11.7); MONO # 0.5 K/uL (0.0-0.8); MONO % 7.6 % (0.0-10.0); NEUT # 3.9 K/uL (1.8-7.0); NEUT % 56.1 % (50.0-75.0); NRBC % 0.1 % (0.0-2.0); RBC 4.76 Mil/uL (3.80-5.20); RED CELL DISTRIBUTION WIDTH 15.4 % (11.5-14.5)
[2018-09-03 08:16] LABS: ALB/GLOB RATIO 1.2 (1.0-2.1); ALBUMIN 3.9 g/dL (3.5-5.0); ALT/SGPT 23 U/L (9-52); AST/SGOT 25 U/L (14-36); BLOOD UREA NITROGEN 15 mg/dL (7-17); CALCIUM 9.2 mg/dl (8.6-10.4); GFR NON-AFRICAN AMERICAN > 60
[2018-09-03] MEDS: Pantoprazole 40 mg EC Tab PO SCH (09:07)
[2018-09-03] MEDS: Lactobacillus Acidophilus 500 MU Cap PO SCH ×2 (09:07→17:08)
[2018-09-04] MEDS: Meropenem 1 GM in Sodium Chloride 0.9% 100 ML IVPB SCH ×3 (05:08→21:10)
[2018-09-04 06:54] LABS: BASO # 0.1 K/uL (0.0-0.2); BASO % 0.8 % (0.0-2.0); EOS # 0.1 K/uL (0.0-0.7); EOS % 1.9 % (0.0-4.0); HEMOGLOBIN 12.8 g/dL (11.0-16.0); LYMPH # 2.2 K/uL (1.0-4.3); LYMPH % 28.7 % (20.0-40.0); MEAN CELL VOLUME 80.1 fL (81.0-99.0); MEAN CORPUSCULAR HEMOGLOBIN 26.3 pg (27.0-31.0); MEAN CORPUSCULAR HGB CONC 32.9 g/dL (33.0-37.0); MEAN PLATELET VOLUME 9.6 fL (7.2-11.7); MONO # 0.6 K/uL (0.0-0.8); MONO % 7.3 % (0.0-10.0); NEUT # 4.7 K/uL (1.8-7.0); NEUT % 61.3 % (50.0-75.0); NRBC % 0.1 % (0.0-2.0); RBC 4.87 Mil/uL (3.80-5.20); RED CELL DISTRIBUTION WIDTH 15.4 % (11.5-14.5); WHITE BLOOD COUNT 7.7 K/uL (4.8-10.8)
--- NOTE | 2018-09-04 07:18 | CP.PCM.PN ---
Subjective - Date & Time of Evaluation Date of Evaluation: 09/04/18 Time of Evaluation: 07:18 Objective - Vital Signs/Intake and Output Vital Signs (last 24 hours): Temp Pulse Resp BP Pulse Ox 98.4 F 80 20 100/64 98 09/04/18 00:00 09/04/18 00:00 09/04/18 00:00 09/04/18 00:00 09/04/18 00:00 Intake and Output: 09/04/18 09/04/18 06:59 18:59 Intake Total 340 Balance 340 - Medications Medications: Current Medications Acetaminophen (Tylenol 325mg Tab) 650 mg PO Q6 PRN PRN Reason: Pain, moderate (4-7) Last Admin: 08/30/18 21:10 Dose: 650 mg Meropenem 1 gm/ Sodium (Chloride) 100 mls @ 100 mls/hr IVPB Q8H [facility]; Protocol Last Admin: 09/04/18 05:08 Dose: 100 mls/hr Ketorolac Tromethamine (Toradol) 30 mg IVP Q6 PRN PRN Reason: Pain, severe (8-10) Lactobacillus Acidophilus (Lactobacillus) 1 cap PO BID [facility] Last Admin: 09/03/18 17:08 Dose: 1 cap Loratadine (Claritin) 10 mg PO DAILY PRN PRN Reason: Allergy symptoms Ondansetron HCl (Zofran Inj) 4 mg IVP Q6 PRN PRN Reason: Nausea/Vomiting Pantoprazole Sodium (Protonix Ec Tab) 40 mg PO DAILY [facility] Last Admin: 09/03/18 09:07 Dose: 40 mg - Labs Labs: 09/04/18 06:47 09/03/18 07:50 PT 12.8 SECONDS (9.7-12.2) H 08/28/18 16:23 INR 1.2 08/28/18 16:23
--- NOTE | 2018-09-04 07:33 | CP.PCM.PN ---
<Teo Turcios - Last Filed: 09/04/18 14:37> Subjective - Date & Time of Evaluation Date of Evaluation: 09/04/18 Time of Evaluation: 07:33 - Subjective Subjective: PGY-1 Medicine Progress Note for Dr. Garcia Patient seen and examined at bedside this AM, in no acute distress. No overnight events reported. Patient continues to endorse mild R flank pain, though improved, as well as some "pressure" sensation with urination. No other acute somatic complaints. Denies fevers/chills, headaches, dizziness, chest pain, palpitations, sob, cough, abdominal pain, n/v/d/c. 12 pt ROS reviewed and otherwise negative. Objective - Vital Signs/Intake and Output Vital Signs (last 24 hours): Temp Pulse Resp BP Pulse Ox 98.4 F 80 20 100/64 98 09/04/18 00:00 09/04/18 00:00 09/04/18 00:00 09/04/18 00:00 09/04/18 00:00 Intake and Output: 09/04/18 09/04/18 06:59 18:59 Intake Total 340 Balance 340 - Medications Medications: Current Medications Acetaminophen (Tylenol 325mg Tab) 650 mg PO Q6 PRN PRN Reason: Pain, moderate (4-7) Last Admin: 08/30/18 21:10 Dose: 650 mg Meropenem 1 gm/ Sodium (Chloride) 100 mls @ 100 mls/hr IVPB Q8H [facility]; Protocol Last Admin: 09/04/18 05:08 Dose: 100 mls/hr Ketorolac Tromethamine (Toradol) 30 mg IVP Q6 PRN PRN Reason: Pain, severe (8-10) Lactobacillus Acidophilus (Lactobacillus) 1 cap PO BID [facility] Last Admin: 09/03/18 17:08 Dose: 1 cap Loratadine (Claritin) 10 mg PO DAILY PRN PRN Reason: Allergy symptoms Ondansetron HCl (Zofran Inj) 4 mg IVP Q6 PRN PRN Reason: Nausea/Vomiting Pantoprazole Sodium (Protonix Ec Tab) 40 mg PO DAILY [facility] Last Admin: 09/03/18 09:07 Dose: 40 mg - Labs Labs: 09/04/18 06:47 09/03/18 07:50 PT 12.8 SECONDS (9.7-12.2) H 08/28/18 16:23 INR 1.2 08/28/18 16:23 - Constitutional Appears: Non-toxic, No Acute Distress - Head Exam Head Exam: ATRAUMATIC, NORMAL INSPECTION, NORMOCEPHALIC - Eye Exam Eye Exam: EOMI, Normal appearance, PERRL Pupil Exam: NORMAL ACCOMODATION - ENT Exam ENT Exam: Mucous Membranes Moist, Normal Exam - Neck Exam Neck Exam: Full ROM, Normal Inspection - Respiratory Exam Respiratory Exam: Clear to Ausculation Bilateral, NORMAL BREATHING PATTERN. absent: Accessory Muscle Use, Rales, Rhonchi, Wheezes, Respiratory Distress, Stridor - Cardiovascular Exam Cardiovascular Exam: REGULAR RHYTHM, +S1, +S2 - GI/Abdominal Exam GI & Abdominal Exam: Soft, Normal Bowel Sounds. absent: Distended, Firm, Guarding, Rigid, Tenderness, Rebound - Extremities Exam Extremities Exam: Full ROM, Normal Capillary Refill, Normal Inspection. absent: Calf Tenderness, Pedal Edema - Back Exam Back Exam: CVA tenderness (R) (mild), NORMAL INSPECTION - Neurological Exam Neurological Exam: Alert, Awake, CN II-XII Intact, Oriented x3 - Skin Skin Exam: Dry, Intact, Normal Color, Warm Assessment and Plan - Assessment and Plan (Free Text) Assessment: 33 year old female with pmhx of nephrolithias s/p renal stent 06/2018, lithotripsy in the [place]), admitted for evaluation of flank pain extending to groin area, positive U/A, urine culture positive for ESBL, repeat urine cx negative, on IV abx Merrem, ID and urology on board, s/p flex uretoscopy and stent removal 08/31 Plan: History of Nephrolithasis ESBL+ Urinary Tract Infection -History of Ureteral stent placement in 07/04 -Urine culture (08/25/18): ESBL -Repeat urine culture: no growth X2 -Blood cultures (08/25/18): negative -Abdominal xray (08/25): right double J ureteral stent remains in customary position. 3mm radiopacity medial to the stent in the right hemipelvis may repres ent a ureteral stone in the appropriate clinical setting. No radiographic evidence for right nephrolithiasis. 8mm faint linear calcification overlying the left renal silhouette represent in renal stone. -CT Abdomen/pelvis (08/25): small right kidney with cortical scar in the upper pole. 2mm nonobstructing stone in the lower pole of the right kidney. Mild fullness in the right collecting system without obtructive uropathy. Right ureteral stent remains in customary position. No evidence of ureteral strone. Mild compensatory hypertrophy of the left kidny. Small nonobstructing stones in the left kidney, the largest in the lower pole measures 5mm. No left hydronephrosis -Urology (Dr. Rosas) recs appreciated -s/p uteroscopy, cystoscopy and stent removal, stone was not able to be removed, patient to follow up outpatient -ID recs (Dr. Shell) appreciated -patient to complete 14 day course IV abx -Meropenem 1gm IVPB Q8H (active since 08/25/18) -will finish the IV Meropenem on the night of 09/08/18 and will be discharge on morning 09/09/18. Patient is aware of plan. -Lactobacillus 1 tab PO BID -begin Tamsulosin 0.4 mg PO daily (09/04) -begin Pyridium 100 mg PO daily (09/04) -Zofran 4mg IVP Q6H PRN nausea Nasal congestion -most likely allergic rhinitis -claritin 10mg PO PRN for allergy symptoms PPx, Diet, Disposition -DVT ppx: scds, heparin 5000 units sc q8h -GI ppx: protonix 40 mg PO daily -Diet: HHD -Disposition: patient to continue 14 day course of IV abx (meropenum required and no good switch from PO to IV & Q8H dosing so not a viable candidate for outpatient infusion), will likely be discharged 09/09/2018. will follow up urology recs. Case discussed with Dr. Radha Turcios DO, PGY-1 <Ivana Garcia V - Last Filed: 09/04/18 16:49> Objective - Vital Signs/Intake and Output Vital Signs (last 24 hours): Temp Pulse Resp BP Pulse Ox 97.3 F L 75 20 97/65 L 96 09/04/18 08:07 09/04/18 08:07 09/04/18 08:07 09/04/18 08:07 09/04/18 08:07 Intake and Output: 09/04/18 09/04/18 06:59 18:59 Intake Total 340 400 Balance 340 400 - Medications Medications: Current Medications Acetaminophen (Tylenol 325mg Tab) 650 mg PO Q6 PRN PRN Reason: Pain, moderate (4-7) Last Admin: 08/30/18 21:10 Dose: 650 mg Heparin Sodium (Porcine) (Heparin) 5,000 units SC Q12 [facility] Last Admin: 09/04/18 09:47 Dose: 5,000 units Meropenem 1 gm/ Sodium (Chloride) 100 mls @ 100 mls/hr IVPB Q8H [facility]; Protocol Last Admin: 09/04/18 13:01 Dose: 100 mls/hr Ibuprofen (Motrin Tab) 600 mg PO TID PRN PRN Reason: Pain, Mild (1-3) Lactobacillus Acidophilus (Lactobacillus) 1 cap PO BID [facility] Last Admin: 09/04/18 09:48 Dose: 1 cap Loratadine (Claritin) 10 mg PO DAILY PRN PRN Reason: Allergy symptoms Ondansetron HCl (Zofran Inj) 4 mg IVP Q6 PRN PRN Reason: Nausea/Vomiting Pantoprazole Sodium (Protonix Ec Tab) 40 mg PO DAILY [facility] Last Admin: 09/04/18 09:48 Dose: 40 mg Phenazopyridine HCl (Pyridium) 100 mg PO DAILY [facility] Tamsulosin HCl (Flomax) 0.4 mg PO DAILY [facility] Last Admin: 09/04/18 12:08 Dose: 0.4 mg - Labs Labs: 09/04/18 06:47 09/04/18 06:47 PT 12.8 SECONDS (9.7-12.2) H 08/28/18 16:23 INR 1.2 08/28/18 16:23 Attending/Attestation - Attestation I have personally seen and examined this patient.: Yes I have fully participated in the care of the patient.: Yes I have reviewed all pertinent clinical information, including history, physical exam and plan: Yes Notes (Text): 33 year old female with pmhx of nephrolithiasis s/p renal stent 06/2018, lithotripsy in the [place]), admitted for evaluation of flank pain extending to groin area, positive U/A, urine culture positive for ESBL, repeat urine cx shows no growth while on IV abx Merrem, ID and urology on board, s/p flex uretoscopy and stent removal 08/31. Patient reports some burning on urination, flank pain is less, and that she has completed her menstruation. We have added Flomax 0.4mg PO daily given her 4mm kidney stone, Motrin PRN for pain, pyridium for pain secondary uti; patient is aware it will color her urine red/orange and we will need to follow-up with urology regarding lithotripsy in the future. In the meantime patient to finish IV abx therapy since there is no adequate PO alternative for her ESBL UTI. Assessment/Plan 1. History of Nephrolithasis ESBL+ Urinary Tract Infection History of Ureteral stent placement in 07/04 * Urine culture (08/25/18): ESBL * Repeat urine culture: no growth X2 * Blood cultures (08/25/18): negative * Abdominal xray (08/25/18): right double J ureteral stent remains in customary position. 3mm radiopacity medial to the stent in the right hemipelvis may represent a ureteral stone in the appropriate clinical setting. No radiographic evidence for right nephrolithiasis. 8mm faint linear calcification overlying the left renal silhouette represent in renal stone. * CT Abdomen/pelvis (08/25/18): small right kidney with cortical scar in the upper pole. 2mm nonobstructing stone in the lower pole of the right kidney. Mild fullness in the right collecting system without obtructive uropathy. Right ureteral stent remains in customary position. No evidence of ureteral strone. Mild compensatory hypertrophy of the left kidny. Small nonobstructing stones in the left kidney, the largest in the lower pole measures 5mm. No left hydronephrosis * Meropenem 1gm IVPB Q8H (active since 08/25/18) * To complete 14 day course * Bacid 1 tab PO BID * Zofran 4mg IVP Q6H PRN nausea * Urology (Dr. Rosas) on board-->help appreciated - uteroscopy, cystoscopy and stent removal, stone was not able to be removed, patient to follow up outpatient * Infectious Disease (Dr. Shell) on board-->help appreciated - patient to complete 14 day course IV abx * Flomax 0.4mg PO daily * Pyridum 100mg PO BID * Status: acute 2. Menstruation (Completed) * patient is currently having menstruation--?reports typical 5-7 day course * completed * status: acute 3. Nasal congestion/pruritus, possible allergic rhinitis * most likely allergic rhinitis * no erythema on nasal turbinates * claritin 10mg PO PRN for allergy symptoms * status: resolved 4. Prophylactic measure * Protonix 40mg PO daily for GI ppx * Heparin 5000 units [id number] * Motrin PRN for pain Dispo: patient to continue 14 day course of IV abx (meropenum required and no good switch from PO to IV & Q8H dosing so not a viable candidate for outpatient infusion), will likely be discharged 09/09/2018. will follow up urology for additional recommendations.
[2018-09-04 07:47] LABS: ALB/GLOB RATIO 1.2 (1.0-2.1); ALT/SGPT 23 U/L (9-52); AST/SGOT 26 U/L (14-36); BLOOD UREA NITROGEN 19 mg/dL (7-17); CALCIUM 8.8 mg/dl (8.6-10.4); GFR NON-AFRICAN AMERICAN > 60
[2018-09-04] MEDS: Pantoprazole 40 mg EC Tab PO SCH (09:48)
[2018-09-04] MEDS: Lactobacillus Acidophilus 500 MU Cap PO SCH ×2 (09:48→17:38)
[2018-09-05] MEDS: Meropenem 1 GM in Sodium Chloride 0.9% 100 ML IVPB SCH ×3 (05:22→21:20)
[2018-09-05 06:51] LABS: BASO # 0.1 K/uL (0.0-0.2); BASO % 0.7 % (0.0-2.0); EOS # 0.1 K/uL (0.0-0.7); EOS % 1.6 % (0.0-4.0); HEMOGLOBIN 13.1 g/dL (11.0-16.0); LYMPH % 26.4 % (20.0-40.0); MEAN CELL VOLUME 80.4 fL (81.0-99.0); MEAN CORPUSCULAR HEMOGLOBIN 26.6 pg (27.0-31.0); MEAN CORPUSCULAR HGB CONC 33.1 g/dL (33.0-37.0); MEAN PLATELET VOLUME 9.7 fL (7.2-11.7); MONO # 0.5 K/uL (0.0-0.8); NEUT % 64.3 % (50.0-75.0); NRBC % 0.1 % (0.0-2.0); RBC 4.94 Mil/uL (3.80-5.20); RED CELL DISTRIBUTION WIDTH 15.3 % (11.5-14.5); WHITE BLOOD COUNT 7.7 K/uL (4.8-10.8)
[2018-09-05 07:28] LABS: ALB/GLOB RATIO 1.3 (1.0-2.1); ALT/SGPT 21 U/L (9-52); AST/SGOT 30 U/L (14-36); BLOOD UREA NITROGEN 17 mg/dL (7-17); GFR NON-AFRICAN AMERICAN > 60
--- NOTE | 2018-09-05 07:29 | CP.PCM.PN ---
<Teo Turcios - Last Filed: 09/05/18 17:02> Subjective - Date & Time of Evaluation Date of Evaluation: 09/05/18 Time of Evaluation: 07:29 - Subjective Subjective: PGY-1 Medicine Progress Note for Dr. Garcia Patient seen and examined at bedside this AM, in no acute distress. No overnight events reported. Continues to endorse some burning on urination as well as R flank pain, though improved. Flomax 0.4mg PO daily was added given her 4mm kidney stone, Motrin PRN for pain, pyridium for pain secondary to UTI. Reiterated need for IV abx until Tuesday, which patient understood. 12 pt ROS reviewed and negative at this time. Objective - Vital Signs/Intake and Output Vital Signs (last 24 hours): Temp Pulse Resp BP Pulse Ox 97.7 F 86 20 100/69 96 09/05/18 00:00 09/05/18 00:00 09/05/18 00:00 09/05/18 00:00 09/05/18 00:00 Intake and Output: 09/05/18 09/05/18 06:59 18:59 Intake Total 500 Balance 500 - Medications Medications: Current Medications Acetaminophen (Tylenol 325mg Tab) 650 mg PO Q6 PRN PRN Reason: Pain, moderate (4-7) Last Admin: 08/30/18 21:10 Dose: 650 mg Heparin Sodium (Porcine) (Heparin) 5,000 units SC Q12 [facility] Last Admin: 09/04/18 21:10 Dose: 5,000 units Meropenem 1 gm/ Sodium (Chloride) 100 mls @ 100 mls/hr IVPB Q8H [facility]; Protocol Last Admin: 09/05/18 05:22 Dose: 100 mls/hr Ibuprofen (Motrin Tab) 600 mg PO TID PRN PRN Reason: Pain, Mild (1-3) Lactobacillus Acidophilus (Lactobacillus) 1 cap PO BID [facility] Last Admin: 09/04/18 17:38 Dose: 1 cap Loratadine (Claritin) 10 mg PO DAILY PRN PRN Reason: Allergy symptoms Ondansetron HCl (Zofran Inj) 4 mg IVP Q6 PRN PRN Reason: Nausea/Vomiting Pantoprazole Sodium (Protonix Ec Tab) 40 mg PO DAILY [facility] Last Admin: 09/04/18 09:48 Dose: 40 mg Phenazopyridine HCl (Pyridium) 100 mg PO DAILY [facility] Tamsulosin HCl (Flomax) 0.4 mg PO DAILY [facility] Last Admin: 09/04/18 12:08 Dose: 0.4 mg - Labs Labs: 09/05/18 06:40 09/05/18 06:40 PT 12.8 SECONDS (9.7-12.2) H 08/28/18 16:23 INR 1.2 08/28/18 16:23 - Constitutional Appears: Non-toxic, No Acute Distress - Head Exam Head Exam: ATRAUMATIC, NORMAL INSPECTION, NORMOCEPHALIC - Eye Exam Eye Exam: EOMI, Normal appearance, PERRL Pupil Exam: NORMAL ACCOMODATION - ENT Exam ENT Exam: Mucous Membranes Moist, Normal Exam - Neck Exam Neck Exam: Full ROM, Normal Inspection - Respiratory Exam Respiratory Exam: Clear to Ausculation Bilateral, NORMAL BREATHING PATTERN. absent: Accessory Muscle Use, Rales, Rhonchi, Wheezes, Respiratory Distress, Stridor - Cardiovascular Exam Cardiovascular Exam: REGULAR RHYTHM, +S1, +S2 - GI/Abdominal Exam GI & Abdominal Exam: Soft, Normal Bowel Sounds. absent: Distended, Firm, Guarding, Rigid, Tenderness, Rebound - Extremities Exam Extremities Exam: Normal Capillary Refill, Normal Inspection. absent: Calf Tenderness, Pedal Edema - Back Exam Back Exam: NORMAL INSPECTION - Neurological Exam Neurological Exam: Alert, Awake, Oriented x3 - Skin Skin Exam: Dry, Intact, Normal Color, Warm Assessment and Plan - Assessment and Plan (Free Text) Assessment: 33 year old female with pmhx of nephrolithias s/p renal stent 06/2018, lithotripsy in the [place]), admitted for evaluation of flank pain extending to groin area, positive U/A, urine culture positive for ESBL, repeat urine cx negative, on IV abx Merrem, ID and urology on board, s/p flex uretoscopy and stent removal 08/31 Plan: History of Nephrolithasis ESBL+ Urinary Tract Infection -History of Ureteral stent placement in 07/04 -Urine culture (08/25/18): ESBL -Repeat urine culture: no growth X2 -Blood cultures (08/25/18): negative -Abdominal xray (08/25): right double J ureteral stent remains in customary position. 3mm radiopacity medial to the stent in the right hemipelvis may represent a ureteral stone in the appropriate clinical setting. No radiographic evidence for right nephrolithiasis. 8mm faint linear calcification overlying the left renal silhouette represent in renal stone. -CT Abdomen/pelvis (08/25): small right kidney with cortical scar in the upper pole. 2mm nonobstructing stone in the lower pole of the right kidney. Mild fullness in the right collecting system without obtructive uropathy. Right ureteral stent remains in customary position. No evidence of ureteral strone. Mild compensatory hypertrophy of the left kidny. Small nonobstructing stones in the left kidney, the largest in the lower pole measures 5mm. No left hydronephrosis -Urology (Dr. Rosas) recs appreciated -s/p uteroscopy, cystoscopy and stent removal, stone was not able to be removed, patient to follow up outpatient -ID recs (Dr. Shell) appreciated -patient to complete 14 day course IV abx -Meropenem 1gm IVPB Q8H (active since 08/25/18) -will finish the IV Meropenem on the night of 09/08/18 and will be discharge on morning 09/09/18. Patient is aware of plan. -Lactobacillus 1 tab PO BID -Tamsulosin 0.4 mg PO daily -Pyridium 100 mg PO daily -Zofran 4mg IVP Q6H PRN nausea Nasal congestion -most likely allergic rhinitis -claritin 10mg PO PRN for allergy symptoms PPx, Diet, Disposition -DVT ppx: scds, heparin 5000 units sc q8h -GI ppx: protonix 40 mg PO daily -Diet: HHD -Disposition: patient to continue 14 day course of IV abx (meropenum required and no good switch from PO to IV & Q8H dosing so not a viable candidate for outpatient infusion), will likely be discharged 09/09/2018. Will follow up urology recs. Case discussed with Dr. Radha Turcios DO, PGY-1 <Ivana Garcia V - Last Filed: 09/05/18 23:15> Objective - Vital Signs/Intake and Output Vital Signs (last 24 hours): Temp Pulse Resp BP Pulse Ox 98.1 F 91 H 20 99/67 L 97 09/05/18 16:01 09/05/18 16:01 09/05/18 16:01 09/05/18 16:01 09/05/18 16:01 Intake and Output: 09/05/18 09/05/18 06:59 18:59 Intake Total 500 470 Balance 500 470 - Medications Medications: Current Medications Acetaminophen (Tylenol 325mg Tab) 650 mg PO Q6 PRN PRN Reason: Pain, moderate (4-7) Last Admin: 08/30/18 21:10 Dose: 650 mg Heparin Sodium (Porcine) (Heparin) 5,000 units SC Q12 [facility] Last Admin: 09/05/18 09:26 Dose: 5,000 units Meropenem 1 gm/ Sodium (Chloride) 100 mls @ 100 mls/hr IVPB Q8H [facility]; Protocol Last Admin: 09/05/18 13:23 Dose: 100 mls/hr Ibuprofen (Motrin Tab) 600 mg PO TID PRN PRN Reason: Pain, Mild (1-3) Lactobacillus Acidophilus (Lactobacillus) 1 cap PO BID [facility] Last Admin: 09/05/18 09:26 Dose: 1 cap Loratadine (Claritin) 10 mg PO DAILY PRN PRN Reason: Allergy symptoms Ondansetron HCl (Zofran Inj) 4 mg IVP Q6 PRN PRN Reason: Nausea/Vomiting Pantoprazole Sodium (Protonix Ec Tab) 40 mg PO DAILY [facility] Last Admin: 09/05/18 09:26 Dose: 40 mg Phenazopyridine HCl (Pyridium) 100 mg PO DAILY [facility] Last Admin: 09/05/18 09:26 Dose: 100 mg Tamsulosin HCl (Flomax) 0.4 mg PO DAILY [facility] Last Admin: 09/05/18 09:26 Dose: 0.4 mg - Labs Labs: 09/05/18 06:40 09/05/18 06:40 PT 12.8 SECONDS (9.7-12.2) H 08/28/18 16:23 INR 1.2 08/28/18 16:23 Attending/Attestation - Attestation I have personally seen and examined this patient.: Yes I have fully participated in the care of the patient.: Yes I have reviewed all pertinent clinical information, including history, physical exam and plan: Yes Notes (Text): 33 year old female with pmhx of nephrolithiasis s/p renal stent 06/2018, lithotripsy in the [place]), admitted for evaluation of flank pain extending to groin area, positive U/A, urine culture positive for ESBL, repeat urine cx shows no growth while on IV abx Merrem, ID and urology on board, s/p flex uretoscopy and stent removal 08/31. Patient reports some burning on urination, flank pain is less, and that she has completed her menstruation. We have added Flomax 0.4mg PO daily given her 4mm kidney stone, Motrin PRN for pain, pyridium for pain secondary uti; patient is aware it will color her urine red/orange and we will need to follow-up with urology regarding lithotripsy in the future. In the meantime patient to finish IV abx therapy since there is no adequate PO alternative for her ESBL UTI. Patient seen today. Patient abdominal pain improving. Patient taking Motrin as needed. Patient no longer has CVA tenderness. There was a course during the day where patient was threatening to leave AGAINST MEDICAL ADVICE because her child was being admitted to [place] I did speak with the patient statement services representative, who did speak with the patient to help subside her worries because there is no alternative treatment for her to take by mouth if she wants to leave AGAINST MEDICAL ADVICE as well as the resident did speak with her as well. Patient is amenable to initiate IV meropenem last dose Tuesday night and attempt for pot ential discharge for Tuesday. Assessment/Plan 1. History of Nephrolithasis ESBL+ Urinary Tract Infection History of Ureteral stent placement in 07/04 * Urine culture (08/25/18): ESBL * Repeat urine culture: no growth X2 * Blood cultures (08/25/18): negative * Abdominal xray (08/25/18): right double J ureteral stent remains in customary position. 3mm radiopacity medial to the stent in the right hemipelvis may represent a ureteral stone in the appropriate clinical setting. No radiographic evidence for right nephrolithiasis. 8mm faint linear calcification overlying the left renal silhouette represent in renal stone. * CT Abdomen/pelvis (08/25/18): small right kidney with cortical scar in the upper pole. 2mm nonobstructing stone in the lower pole of the right kidney. Mild fullness in the right collecting system without obtructive uropathy. Right ureteral stent remains in customary position. No evidence of ureteral strone. Mild compensatory hypertrophy of the left kidny. Small nonobstructing stones in the left kidney, the largest in the lower pole measures 5mm. No left hydronephrosis * Meropenem 1gm IVPB Q8H (active since 08/25/18) * To complete 14 day course * Bacid 1 tab PO BID * Zofran 4mg IVP Q6H PRN nausea * Urology (Dr. Rosas) on board-->help appreciated - uteroscopy, cystoscopy and stent removal, stone was not able to be removed, patient to follow up outpatient * Infectious Disease (Dr. Shell) on board-->help appreciated - patient to complete 14 day course IV abx * Flomax 0.4mg PO daily * Pyridum 100mg PO BID * Status: acute 2. Menstruation (Completed) * patient is currently having menstruation--?reports typical 5-7 day course * completed * status: acute 3. Nasal congestion/pruritus, possible allergic rhinitis * most likely allergic rhinitis * no erythema on nasal turbinates * claritin 10mg PO PRN for allergy symptoms * status: resolved 4. Prophylactic measure * Protonix 40mg PO daily for GI ppx * Heparin 5000 units [id number] * Motrin PRN for pain Dispo: patient to continue 14 day course of IV abx (meropenum required and no good switch from PO to IV & Q8H dosing so not a viable candidate for outpatient infusion), will likely be discharged 09/09/2018.
[2018-09-05] MEDS: Pantoprazole 40 mg EC Tab PO SCH (09:26)
[2018-09-05] MEDS: Lactobacillus Acidophilus 500 MU Cap PO SCH ×2 (09:26→17:58)
[2018-09-06] MEDS: Meropenem 1 GM in Sodium Chloride 0.9% 100 ML IVPB SCH ×3 (05:37→21:11)
--- NOTE | 2018-09-06 07:03 | CP.PCM.PN ---
Subjective - Date & Time of Evaluation Date of Evaluation: 09/06/18 Time of Evaluation: 07:03 - Subjective Subjective: PGY-1 Medicine Progress Note for Dr. Garcia Patient seen and examined at bedside this AM. No acute overnight events reported. CVA tenderness is much improved at this point, abdominal pain continues to improve. Patient does endorse significant allergies this morning, has claritin on board. I spoke to Urology (Dr. Rosas) who stated that abdominal xrays taken post-procedure showed the stones spontaneously passed and there is no further follow-up required. Yesterday afternoon, patient was threatening to leave against medical advice after learning that her son was being admitted to [facility]. Both medical attending and I spoke to her at separate times to alleviate her concerns, as there is no alternative PO option to her medical regimen. Patient was consoled and amenable to staying in the hospital to complete her IV merrem course, scheduled to end on Tuesday night. Objective - Vital Signs/Intake and Output Vital Signs (last 24 hours): Temp Pulse Resp BP Pulse Ox 98 F 82 20 99/58 L 96 09/06/18 00:00 09/06/18 00:00 09/06/18 00:00 09/06/18 00:00 09/06/18 00:00 Intake and Output: 09/06/18 09/06/18 06:59 18:59 Intake Total 740 Balance 740 - Medications Medications: Current Medications Acetaminophen (Tylenol 325mg Tab) 650 mg PO Q6 PRN PRN Reason: Pain, moderate (4-7) Last Admin: 08/30/18 21:10 Dose: 650 mg Heparin Sodium (Porcine) (Heparin) 5,000 units SC Q12 [facility] Last Admin: 09/05/18 21:21 Dose: 5,000 units Meropenem 1 gm/ Sodium (Chloride) 100 mls @ 100 mls/hr IVPB Q8H [facility]; Protocol Last Admin: 09/06/18 05:37 Dose: 100 mls/hr Ibuprofen (Motrin Tab) 600 mg PO TID PRN PRN Reason: Pain, Mild (1-3) Lactobacillus Acidophilus (Lactobacillus) 1 cap PO BID [facility] Last Admin: 09/05/18 17:58 Dose: 1 cap Loratadine (Claritin) 10 mg PO DAILY PRN PRN Reason: Allergy symptoms Ondansetron HCl (Zofran Inj) 4 mg IVP Q6 PRN PRN Reason: Nausea/Vomiting Pantoprazole Sodium (Protonix Ec Tab) 40 mg PO DAILY [facility] Last Admin: 09/05/18 09:26 Dose: 40 mg Phenazopyridine HCl (Pyridium) 100 mg PO DAILY [facility] Last Admin: 09/05/18 09:26 Dose: 100 mg Tamsulosin HCl (Flomax) 0.4 mg PO DAILY [facility] Last Admin: 09/05/18 09:26 Dose: 0.4 mg - Labs Labs: 09/05/18 06:40 09/05/18 06:40 PT 12.8 SECONDS (9.7-12.2) H 08/28/18 16:23 INR 1.2 08/28/18 16:23 - Constitutional Appears: Non-toxic, No Acute Distress - Head Exam Head Exam: ATRAUMATIC, NORMAL INSPECTION, NORMOCEPHALIC - Eye Exam Eye Exam: EOMI, Normal appearance, PERRL Pupil Exam: NORMAL ACCOMODATION - ENT Exam ENT Exam: Mucous Membranes Moist, Normal Exam - Neck Exam Neck Exam: Full ROM, Normal Inspection - Respiratory Exam Respiratory Exam: Clear to Ausculation Bilateral, NORMAL BREATHING PATTERN. absent: Accessory Muscle Use, Rales, Rhonchi, Wheezes, Respiratory Distress, Stridor - Cardiovascular Exam Cardiovascular Exam: REGULAR RHYTHM, +S1, +S2 - GI/Abdominal Exam GI & Abdominal Exam: Soft, Normal Bowel Sounds. absent: Distended, Firm, Guarding, Rigid, Tenderness, Rebound - Extremities Exam Extremities Exam: Full ROM, Normal Capillary Refill, Normal Inspection - Back Exam Back Exam: NORMAL INSPECTION - Neurological Exam Neurological Exam: Alert, Awake, Oriented x3 - Skin Skin Exam: Dry, Intact, Normal Color, Warm Assessment and Plan - Assessment and Plan (Free Text) Assessment: 33 year old female with pmhx of nephrolithias s/p renal stent 06/2018, lithotripsy in the [place]), admitted for evaluation of flank pain extending to groin area, positive U/A, urine culture positive for ESBL, repeat urine cx negative, on IV abx Merrem, ID and urology on board, s/p flex uretoscopy and stent removal 08/31 Plan: History of Nephrolithasis ESBL+ Urinary Tract Infection -History of Ureteral stent placement in 07/04 -Urine culture (08/25/18): ESBL -Repeat urine culture: no growth X2 -Blood cultures (08/25/18): negative -Abdominal xray (08/25): right double J ureteral stent remains in customary position. 3mm radiopacity medial to the stent in the right hemipelvis may represent a ureteral stone in the appropriate clinical setting. No radiographic evidence for right nephrolithiasis. 8mm faint linear calcification overlying the left renal silhouette represent in renal stone. -CT Abdomen/pelvis (08/25): small right kidney with cortical scar in the upper pole. 2mm nonobstructing stone in the lower pole of the right kidney. Mild fulln ess in the right collecting system without obtructive uropathy. Right ureteral stent remains in customary position. No evidence of ureteral strone. Mild compensatory hypertrophy of the left kidny. Small nonobstructing stones in the left kidney, the largest in the lower pole measures 5mm. No left hydronephrosis -Urology (Dr. Rosas) recs appreciated -s/p uteroscopy, cystoscopy and stent removal, stone was not able to be removed, patient to follow up outpatient -Abdominal XRs obtained s/p intervention demonstrated passage of stones, no further workup needed -ID recs (Dr. Shell) appreciated -patient to complete 14 day course IV abx -Meropenem 1gm IVPB Q8H (active since 08/25/18) -will finish the IV Meropenem on the night of 09/08/18 and will be discharge on morning 09/09/18. Patient is aware of plan. -Lactobacillus 1 tab PO BID -Tamsulosin 0.4 mg PO daily -Pyridium 100 mg PO daily -Zofran 4mg IVP Q6H PRN nausea Nasal congestion -most likely allergic rhinitis -claritin 10mg PO PRN for allergy symptoms PPx, Diet, Disposition -DVT ppx: scds, heparin 5000 units sc q8h -GI ppx: protonix 40 mg PO daily -Diet: HHD -Disposition: patient to continue 14 day course of IV abx (meropenum required and no good switch from PO to IV & Q8H dosing so not a viable candidate for outpatient infusion), will likely be discharged 09/09/2018. Case discussed with Dr. Radha Turcios DO, PGY-1
[2018-09-06] MEDS: Lactobacillus Acidophilus 500 MU Cap PO SCH ×2 (09:50→18:02)
[2018-09-06] MEDS: Pantoprazole 40 mg EC Tab PO SCH (09:50)
[2018-09-06 11:15] LABS: BASO # 0.1 K/uL (0.0-0.2); BASO % 1.2 % (0.0-2.0); EOS # 0.1 K/uL (0.0-0.7); EOS % 1.3 % (0.0-4.0); HEMOGLOBIN 13.8 g/dL (11.0-16.0); LYMPH # 2.3 K/uL (1.0-4.3); LYMPH % 33.4 % (20.0-40.0); MEAN CORPUSCULAR HEMOGLOBIN 26.5 pg (27.0-31.0); MEAN CORPUSCULAR HGB CONC 32.7 g/dL (33.0-37.0); MEAN PLATELET VOLUME 9.9 fL (7.2-11.7); MONO # 0.5 K/uL (0.0-0.8); MONO % 6.9 % (0.0-10.0); NEUT # 3.9 K/uL (1.8-7.0); NEUT % 57.2 % (50.0-75.0); NRBC % 0.1 % (0.0-2.0); RBC 5.2 Mil/uL (3.80-5.20); RED CELL DISTRIBUTION WIDTH 15.2 % (11.5-14.5); WHITE BLOOD COUNT 6.8 K/uL (4.8-10.8)
[2018-09-06 11:52] LABS: ALB/GLOB RATIO 1.2 (1.0-2.1); ALBUMIN 4.5 g/dL (3.5-5.0); ALT/SGPT 23 U/L (9-52); AST/SGOT 30 U/L (14-36); BLOOD UREA NITROGEN 19 mg/dL (7-17); CALCIUM 9.2 mg/dl (8.6-10.4); GFR NON-AFRICAN AMERICAN > 60
[2018-09-07] MEDS: Meropenem 1 GM in Sodium Chloride 0.9% 100 ML IVPB SCH ×3 (06:33→21:20)
--- NOTE | 2018-09-07 07:05 | CP.PCM.PN ---
Subjective - Date & Time of Evaluation Date of Evaluation: 09/07/18 Time of Evaluation: 07:04 - Subjective Subjective: PGY-1 Karen Thorne D.O. Medicine progress note for Dr. Garcia's service: Patient was seen and examined this morning. She says she is feeling fine. She is eager to see her son who is currently in the hospital. Objective - Vital Signs/Intake and Output Vital Signs (last 24 hours): Temp Pulse Resp BP Pulse Ox 97.6 F 85 20 99/65 L 95 09/07/18 00:00 09/07/18 00:00 09/07/18 00:00 09/07/18 00:00 09/07/18 00:00 Intake and Output: 09/07/18 09/07/18 06:59 18:59 Intake Total 840 Balance 840 - Medications Medications: Current Medications Acetaminophen (Tylenol 325mg Tab) 650 mg PO Q6 PRN PRN Reason: Pain, moderate (4-7) Last Admin: 08/30/18 21:10 Dose: 650 mg Heparin Sodium (Porcine) (Heparin) 5,000 units SC Q12 [facility] Last Admin: 09/06/18 21:11 Dose: 5,000 units Meropenem 1 gm/ Sodium (Chloride) 100 mls @ 100 mls/hr IVPB Q8H [facility]; Protocol Last Admin: 09/07/18 06:33 Dose: 100 mls/hr Ibuprofen (Motrin Tab) 600 mg PO TID PRN PRN Reason: Pain, Mild (1-3) Lactobacillus Acidophilus (Lactobacillus) 1 cap PO BID [facility] Last Admin: 09/06/18 18:02 Dose: 1 cap Loratadine (Claritin) 10 mg PO DAILY PRN PRN Reason: Allergy symptoms Last Admin: 09/06/18 21:19 Dose: 10 mg Ondansetron HCl (Zofran Inj) 4 mg IVP Q6 PRN PRN Reason: Nausea/Vomiting Pantoprazole Sodium (Protonix Ec Tab) 40 mg PO DAILY [facility] Last Admin: 09/06/18 09:50 Dose: 40 mg Phenazopyridine HCl (Pyridium) 100 mg PO DAILY [facility] Last Admin: 09/06/18 09:50 Dose: 100 mg Tamsulosin HCl (Flomax) 0.4 mg PO DAILY [facility] Last Admin: 09/06/18 09:50 Dose: 0.4 mg - Labs Labs: 09/06/18 11:09 09/06/18 11:09 PT 12.8 SECONDS (9.7-12.2) H 08/28/18 16:23 INR 1.2 08/28/18 16:23 - Additional Findings Additional findings: - Constitutional Appears: Non-toxic, No Acute Distress - Head Exam Head Exam: ATRAUMATIC, NORMAL INSPECTION, NORMOCEPHALIC - Eye Exam Eye Exam: EOMI, Normal appearance, PERRL Pupil Exam: NORMAL ACCOMODATION - ENT Exam ENT Exam: Mucous Membranes Moist, Normal Exam - Neck Exam Neck Exam: Full ROM, Normal Inspection - Respiratory Exam Respiratory Exam: Clear to Ausculation Bilateral, NORMAL BREATHING PATTERN. absent: Accessory Muscle Use, Rales, Rhonchi, Wheezes, Respiratory Distress, Stridor - Cardiovascular Exam Cardiovascular Exam: REGULAR RHYTHM, +S1, +S2 - GI/Abdominal Exam GI & Abdominal Exam: Soft, Normal Bowel Sounds. absent: Distended, Firm, Guarding, Rigid, Tenderness, Rebound - Extremities Exam Extremities Exam: Full ROM, Normal Capillary Refill, Normal Inspection - Back Exam Back Exam: NORMAL INSPECTION - Neurological Exam Neurological Exam: Alert, Awake, Oriented x3 - Skin Skin Exam: Dry, Intact, Normal Color, Warm Assessment and Plan - Assessment and Plan (Free Text) Assessment: Patient is a 33 year old female with pmhx of nephrolithias s/p renal stent 06/2018, lithotripsy in the [place], admitted for evaluation of flank pain extending to groin area, positive U/A, urine culture positive for ESBL, repeat urine cx negative, on IV abx Merrem, ID and urology on board, s/p flex uretoscopy and stent removal 08/31. Patient to complete IV abx through 09/08. Plan: ESBL+ Urinary Tract Infection and h/o nephrolithiasis - History of Ureteral stent placement in 07/04 - Urine culture (08/25/18): ESBL - Repeat urine culture: no growth X2 - Blood cultures (08/25/18): negative - Abdominal xray (08/25): right double J ureteral stent remains in customary position. 3mm radiopacity medial to the stent in the right hemipelvis may represent a ureteral stone in the appropriate clinical setting. No radiographic evidence for right nephrolithiasis. 8mm faint linear calcification overlying the left renal silhouette represent in renal stone. - CT Abdomen/pelvis (08/25): small right kidney with cortical scar in the upper pole. 2mm nonobstructing stone in the lower pole of the right kidney. Mild fullness in the right collecting system without obtructive uropathy. Right ureteral stent remains in customary position. No evidence of ureteral strone. Mild compensatory hypertrophy of the left kidny. Small nonobstructing stones in the left kidney, the largest in the lower pole measures 5mm. No left hydronephrosis - Urology (Dr. Rosas) -s/p uteroscopy, cystoscopy and stent removal, stone was not able to be removed, patient to follow up outpatient -Abdominal XRs obtained s/p intervention demonstrated passage of stones, no further workup needed - ID (Dr. Shell) -patient to complete 14 day course IV abx - Meropenem 1gm IVPB Q8H (active since 08/25/18) -will finish the IV Meropenem on the night of 09/08/18 and will be discharge on morning 09/09/18. Patient is aware of plan. - Lactobacillus 1 tab PO BID - Tamsulosin 0.4 mg PO daily - Pyridium 100 mg PO daily - Zofran 4mg IVP Q6H PRN nausea Allergic rhinitis - Claritin 10mg PO PRN Ppx: VTE: SCDs, heparin 5000 units SC Q8H GI: Protonix 40 mg PO daily Diet: HHD Code status: full code Dispo: patient to continue 14 day course of IV abx (meropenum required and no good switch from PO to IV & Q8H dosing so not a viable candidate for outpatient infusion), will likely be discharged 09/09/2018. Case discussed with attending, Dr. Garcia.
[2018-09-07 07:43] LABS: BASO # 0.1 K/uL (0.0-0.2); BASO % 0.9 % (0.0-2.0); EOS # 0.3 K/uL (0.0-0.7); EOS % 3.7 % (0.0-4.0); HEMOGLOBIN 12.9 g/dL (11.0-16.0); LYMPH # 1.9 K/uL (1.0-4.3); LYMPH % 27.7 % (20.0-40.0); MEAN CELL VOLUME 80.8 fL (81.0-99.0); MEAN CORPUSCULAR HEMOGLOBIN 26.1 pg (27.0-31.0); MEAN CORPUSCULAR HGB CONC 32.3 g/dL (33.0-37.0); MEAN PLATELET VOLUME 9.5 fL (7.2-11.7); MONO # 0.5 K/uL (0.0-0.8); MONO % 7.5 % (0.0-10.0); NEUT # 4.1 K/uL (1.8-7.0); NEUT % 60.2 % (50.0-75.0); RBC 4.95 Mil/uL (3.80-5.20); RED CELL DISTRIBUTION WIDTH 15.4 % (11.5-14.5); WHITE BLOOD COUNT 6.8 K/uL (4.8-10.8)
[2018-09-07 08:10] LABS: ALB/GLOB RATIO 1.2 (1.0-2.1); ALBUMIN 3.9 g/dL (3.5-5.0); ALT/SGPT 26 U/L (9-52); AST/SGOT 25 U/L (14-36); BLOOD UREA NITROGEN 18 mg/dL (7-17); CALCIUM 8.8 mg/dl (8.6-10.4); GFR NON-AFRICAN AMERICAN > 60
[2018-09-07] MEDS: Lactobacillus Acidophilus 500 MU Cap PO SCH ×2 (09:38→17:50)
[2018-09-07] MEDS: Pantoprazole 40 mg EC Tab PO SCH (09:39)
[2018-09-08] MEDS: Meropenem 1 GM in Sodium Chloride 0.9% 100 ML IVPB SCH ×3 (05:30→21:47)
--- NOTE | 2018-09-08 07:03 | CP.PCM.DIS ---
Provider - Provider Date of Admission: 08/27/18 14:46 Attending physician: Ivana Garcia DO Primary care physician: Dioni Consults: 08/25/18 14:20 Urology Consult Routine Comment: Consulting Provider: Hermelindo Rosas Consulting Physician: Hermelindo Rosas Reason for Consult: resnal stent. esbl pos urine 08/27/18 10:42 Infectious Disease Consult Routine Comment: Consulting Provider: Raymond Shell Consulting Physician: Raymond Shell Reason for Consult: ESBL UTI with Nephrolithiasis. Need PO switch recommendation Time Spent in preparation of Discharge (in minutes): 45 Diagnosis - Discharge Diagnosis (1) Urinary tract infection due to ESBL Klebsiella Status: Resolved Priority: High (2) Nephrolithiasis Status: Acute Priority: High (3) Allergic rhinitis Status: Chronic Priority: Low Hospital Course - Lab Results Lab Results: Micro Results 08/25/18 15:15 Blood-Venous Blood Culture - Final NO GROWTH AFTER 5 DAYS 08/25/18 15:15 Blood-Venous Gram Stain - Final TEST NOT PERFORMED 08/25/18 14:50 Blood-Venous Blood Culture - Final NO GROWTH AFTER 5 DAYS 08/25/18 14:50 Blood-Venous Gram Stain - Final TEST NOT PERFORMED 08/29/18 12:16 Urine,Clean Catch Urine Culture - Final No Growth (<1,000 CFU/ML) 08/28/18 09:30 Urine,Clean Catch Urine Culture - Final No Growth (<1,000 CFU/ML) 08/25/18 11:25 Urine,Clean Catch Urine Culture - Final Escherichia Coli Most Recent Lab Values WBC 6.8 K/uL (4.8-10.8) 09/07/18 07:31 RBC 4.95 Mil/uL (3.80-5.20) 09/07/18 07:31 Hgb 12.9 g/dL (11.0-16.0) 09/07/18 07:31 Hct 40.0 % (34.0-47.0) 09/07/18 07:31 MCV 80.8 fL (81.0-99.0) L 09/07/18 07:31 MCH 26.1 pg (27.0-31.0) L 09/07/18 07:31 MCHC 32.3 g/dL (33.0-37.0) L 09/07/18 07:31 RDW 15.4 % (11.5-14.5) H 09/07/18 07:31 Plt Count 290 K/uL (130-400) 09/07/18 07:31 MPV 9.5 fL (7.2-11.7) 09/07/18 07:31 Neut % (Auto) 60.2 % (50.0-75.0) 09/07/18 07: Lymph % (Auto) 27.7 % (20.0-40.0) 09/07/18 07:31 [place] % (Auto) 7.5 % (0.0-10.0) 09/07/18 07: Eos % (Auto) 3.7 % (0.0-4.0) 09/07/18 07: Baso % (Auto) 0.9 % (0.0-2.0) 09/07/18 07:31 Neut # (Auto) 4.1 K/uL (1.8-7.0) 09/07/18 07:31 Lymph # (Auto) 1.9 K/uL (1.0-4.3) 09/07/18 07:31 [place] # (Auto) 0.5 K/uL (0.0-0.8) 09/07/18 07: Eos # (Auto) 0.3 K/uL (0.0-0.7) 09/07/18 07:31 Baso # (Auto) 0.1 K/uL (0.0-0.2) 09/07/18 07:31 PT 12.8 SECONDS (9.7-12.2) H 08/28/18 16:23 INR 1.2 08/28/18 16:23 Sodium 138 mmol/L (132-148) 09/07/18 07:31 Potassium 4.4 mmol/L (3.6-5.2) 09/07/18 07:31 Chloride 101 mmol/L (98-107) 09/07/18 07:31 Carbon Dioxide 29 mmol/L (22-30) 09/07/18 07:31 Anion Gap 12 (10-20) 09/07/18 07:31 BUN 18 mg/dL (7-17) H 09/07/18 07:31 Creatinine 0.7 mg/dL (0.7-1.2) 09/07/18 07:31 Est GFR ( Amer) > 60 09/07/18 07:31 Est GFR (Non-Af Amer) > 60 09/07/18 07:31 Random Glucose 88 mg/dL (65-105) 09/07/18 07:31 Calcium 8.8 mg/dl (8.6-10.4) 09/07/18 07:31 Phosphorus 3.0 mg/dL (2.5-4.5) 09/07/18 07:31 Magnesium 2.0 mg/dL (1.6-2.3) 09/07/18 07:31 Total Bilirubin 0.2 mg/dL (0.2-1.3) 09/07/18 07:31 AST 25 U/L (14-36) 09/07/18 07:31 ALT 26 U/L (9-52) 09/07/18 07:31 Alkaline Phosphatase 63 U/L (38-126) 09/07/18 07:31 Total Protein 7.2 g/dL (6.3-8.3) 09/07/18 07:31 Albumin 3.9 g/dL (3.5-5.0) 09/07/18 07:31 Globulin 3.3 gm/dL (2.2-3.9) 09/07/18 07:31 Albumin/Globulin Ratio 1.2 (1.0-2.1) 09/07/18 07:31 Lipase 91 U/L (23-300) 08/25/18 11:34 Beta HCG, Quant < 2.39 mIU/ML 08/31/18 07:18 Urine Color Yellow (YELLOW) 08/29/18 12:16 Urine Clarity Clear (Clear) 08/29/18 12:16 Urine pH 7.0 (5.0-8.0) 08/29/18 12:16 Ur Specific [place] 1.020 (1.003-1.030) 08/29/18 12:16 Urine Protein Negative mg/dL (NEGATIVE) 08/29/18 12:16 Urine Glucose (UA) Negative mg/dL (Normal) 08/29/18 12:16 Urine Ketones Negative mg/dL (NEGATIVE) 08/29/18 12:16 Urine Blood Moderate (NEGATIVE) 08/29/18 12:16 Urine Nitrate Negative (NEGATIVE) 08/29/18 12:16 Urine Bilirubin Negative (NEGATIVE) 08/29/18 12:16 Urine Urobilinogen 0.2 mg/dL (0.2-1.0) 08/29/18 12:16 Ur Leukocyte Esterase Negative Tash/uL (Negative) 08/29/18 12:16 Urine WBC (Auto) 6 /hpf (0-5) H 08/29/18 12:16 Urine RBC (Auto) 49 /hpf (0-3) H 08/29/18 12:16 Ur Squamous Epith Cells < 1 /hpf (0-5) 08/25/18 10:58 Urine Bacteria Rare (<OCC) 08/29/18 12:16 Urine HCG, Qual Negative (NEGATIVE) 08/25/18 10:58 - Hospital Course Hospital Course: Patient is a 33 year old female, with PMHx of nephrolithiasis (with placement of renal stent, lithotripsy in 07/03), who presents for flank pain. States she has "5+ year history of kidney stones" but this bout of nephrolithiasis began two months ago. She describes pain as "burning sensation," and is located on her left flank - which radiates into her groin. Pain rates as "5-7/10" on the severity scale. Patient admits flank pain associated with subjective fever, dysuria, hematuria and urinary frequency. Patient was seen by Dr. Wheatley on 08/16 and was started on Augmentin without improvement. Patient reports renal stent is supposed to "come out in October" per [place] the [place]. She denies knowing the type of stone. Patient was admitted for nephrolithiasis and UTI. Imaging showed: - Abdominal xray (08/25): right double J ureteral stent remains in customary position. 3mm radiopacity medial to the stent in the right hemipelvis may represent a ureteral stone in the appropriate clinical setting. No radiographic evidence for right nephrolithiasis. 8mm faint linear calcification overlying the left renal silhouette represent in renal stone. - CT Abdomen/pelvis (08/25): small right kidney with cortical scar in the upper pole. 2mm nonobstructing stone in the lower pole of the right kidney. Mild fullness in the right collecting system without obtructive uropathy. Right ureteral stent remains in customary position. No evidence of ureteral stone. Mild compensatory hypertrophy of the left kidny. Small nonobstructing stones in the left kidney, the largest in the lower pole measures 5mm. No left hydronephrosis Urology was consulted. She had flex uretoscopy and stent removal on 08/31. She was started on Flomax and Pyridium. Post-procedure XRs showed that stone had passed. Urine culture grew ESBL. ID consulted, and patient completed 14 days of Merrem. Repeat urine Cx was negative. Blood Cx were negative. Upon discharge, patient was asymptomatic. Her vitals and labs were stable. She remained afebrile and without leukocytosis. She denied abdominal and flank pain and dysuria. Discharge Exam - Head Exam Head Exam: ATRAUMATIC, NORMAL INSPECTION, NORMOCEPHALIC - Eye Exam Eye Exam: EOMI, Normal appearance - ENT Exam ENT Exam: Mucous Membranes Moist - Respiratory Exam Respiratory Exam: Clear to PA & Lateral, NORMAL BREATHING PATTERN, UNREMARKABLE - Cardiovascular Exam Cardiovascular Exam: RRR, +S1, +S2 - GI/Abdominal Exam GI & Abdominal Exam: Normal Bowel Sounds, Soft, Unremarkable. absent: Tenderness - Extremities Exam Extremities exam: normal inspection - Back Exam Back exam: NORMAL INSPECTION - Neurological Exam Neurological exam: Alert, CN II-XII Intact, Normal Gait, Oriented x3 - Psychiatric Exam Psychiatric exam: Normal Affect, Normal Mood - Skin Skin Exam: Dry, Normal Color, Warm Discharge Plan - Follow Up Plan Condition: IMPROVED Disposition: HOME/ ROUTINE Patient education suggested?: Yes Additional Instructions: Follow-up with your primary care physician within 3-5 days of discharge. Make sure you drink plenty of water. You may take Tylenol if you have any pain. You may take [id number] probiotics (ie. Lactobacillus) to help with GI symptoms from antibiotic use. You may take [id number] antihistamine (ie. Claritin) for your allergic rhinitis. If symptoms recur, return to the nearest emergency room. Seguimiento con huerta mdico de atencin primaria dentro de los 3-5 mckeon de la descarga. Asegrese de beber stacy agua. Usted puede dario Tylenol si usted tiene cualquier dolor. Usted puede dario probiticos de venta sharad (es decir. Lactobacillus) para ayudar con los sntomas GI del uso de antibiticos. Usted puede dario antihistamnicos de venta sharad (es decir,. Claritin) para huerta rinitis alrgica. Si los sntomas se repiten, regrese a la richar de emergencias ms cercana. Referrals: Davina Wheatley MD [Staff Provider] -
[2018-09-08 07:35] LABS: BASO # 0.1 K/uL (0.0-0.2); BASO % 0.9 % (0.0-2.0); EOS # 0.3 K/uL (0.0-0.7); EOS % 4.7 % (0.0-4.0); HEMOGLOBIN 12.8 g/dL (11.0-16.0); LYMPH % 29.8 % (20.0-40.0); MEAN CELL VOLUME 80.3 fL (81.0-99.0); MEAN CORPUSCULAR HEMOGLOBIN 26.7 pg (27.0-31.0); MEAN CORPUSCULAR HGB CONC 33.3 g/dL (33.0-37.0); MONO # 0.5 K/uL (0.0-0.8); MONO % 7.5 % (0.0-10.0); NEUT # 3.9 K/uL (1.8-7.0); NEUT % 57.1 % (50.0-75.0); NRBC % 0.1 % (0.0-2.0); RBC 4.79 Mil/uL (3.80-5.20); RED CELL DISTRIBUTION WIDTH 15.2 % (11.5-14.5); WHITE BLOOD COUNT 6.8 K/uL (4.8-10.8)
[2018-09-08 08:08] VITALS: O2SAT 97
[2018-09-08 08:20] LABS: ALB/GLOB RATIO 1.2 (1.0-2.1); ALBUMIN 3.9 g/dL (3.5-5.0); ALT/SGPT 25 U/L (9-52); AST/SGOT 26 U/L (14-36); BLOOD UREA NITROGEN 17 mg/dL (7-17); CALCIUM 8.9 mg/dl (8.6-10.4); GFR NON-AFRICAN AMERICAN > 60
[2018-09-08] MEDS: Lactobacillus Acidophilus 500 MU Cap PO SCH ×2 (09:22→17:27)
[2018-09-08] MEDS: Pantoprazole 40 mg EC Tab PO SCH (09:22)
[2018-09-08 17:18] VITALS: BP 103/68; PULSE 96; TEMP 98.6
== END 2018-09-08 22:30 | disposition home or self-care (01) | DRG 443 ==
LOC: C.ER 09:57 → C.9E 14:21 → C.5S 16:46 → OBSVTOIN 08-27 14:46 → C.3T 08-31 08:22
PROVIDERS: ADMIT Family Medicine; ATTEND Hospitalist
PROC: 0TP98DZ Removal of Intraluminal Device from Ureter, Via Natural or Artificial Opening Endoscopic (ICD-10-PCS; principal; 2018-08-31 18:30)
DX: N20.0 Calculus of kidney (principal); N39.0 Urinary tract infection, site not specified; B96.1 Klebsiella pneumoniae [K. pneumoniae] as the cause of diseases classified elsewhere; B96.20 Unspecified Escherichia coli [E. coli] as the cause of diseases classified elsewhere; L29.9 Pruritus, unspecified; N92.0 Excessive and frequent menstruation with regular cycle